=== PATIENT | male | born 1955 | race Caucasian/White ===

== ENCOUNTER 2024-03-12 20:17 | Inpatient (IN) | payer OTHER ==
--- NOTE | 2024-03-12 20:35 | ED ---
Male Urogenital HPI - General Chief complaint: Urogenital Stated complaint: fever, urogenital Time Seen by Provider: 03/12/24 20:35 Source: patient, RN notes reviewed Mode of arrival: ambulatory Limitations: no limitations - History of Present Illness Initial comments: 61-year-old male with history of hypertension presents emergency department company by and friend chief complaint of possible UTI. Patient states for the past 3 days he has been experiencing dysuria, hematuria, increase in urinary frequency and urgency. Additionally has mild suprapubic intermittent tenderness. Additionally, patient has been experiencing fevers and chills and nausea. Patient denies history of UTI, pyelonephritis, nephrolithiasis. Currently, he is denying abdominal pain, flank pain, shortness of breath, difficulty breathing. no changes in bowel movements. No previous surgical abdominal history. - Related Data Allergies Allergy/AdvReac Type Severity Reaction Status Date / Time No Known Allergies Allergy Verified 03/12/24 20:23 Review of Systems ROS Statement: Those systems with pertinent positive or pertinent negative responses have been documented in the HPI. ROS Other: All systems not noted in ROS Statement are negative. Past Medical History Past Medical History: Hypertension History of Any Multi-Drug Resistant Organisms: None Reported Past Surgical History: Joint Replacement, Orthopedic Surgery Past Psychological History: No Psychological Hx Reported Smoking Status: Never smoker Past Alcohol Use History: Occasional Past Drug Use History: None Reported General Exam Limitations: no limitations General appearance: alert, in no apparent distress Head exam: Present: atraumatic, normocephalic, normal inspection Eye exam: Present: normal appearance, PERRL, EOMI. Absent: scleral icterus, conjunctival injection, periorbital swelling Neck exam: Present: normal inspection. Absent: tenderness, meningismus, lymphadenopathy Respiratory exam: Present: normal lung sounds bilaterally. Absent: respiratory distress, wheezes, rales, rhonchi, stridor Cardiovascular Exam: Present: regular rate, normal rhythm, normal heart sounds. Absent: systolic murmur, diastolic murmur, rubs, gallop, clicks GI/Abdominal exam: Present: soft, normal bowel sounds. Absent: distended, tenderness, guarding, rebound, rigid Back exam: Present: normal inspection Neurological exam: Present: alert, oriented X3, CN II-XII intact Skin exam: Present: warm, dry, intact, normal color. Absent: rash Course Vital Signs 03/12/24 03/12/24 20:18 22:55 Temperature 99.0 F 99.8 F H Pulse Rate 98 137 H Respiratory 18 22 Rate Blood Pressure 158/85 199/102 O2 Sat by Pulse 100 100 Oximetry Medical Decision Making - Medical Decision Making Was pt. sent in by a medical professional or institution (, A[facility], FOLLOW UP REP, urgent care, hospital, or prison...) When possible be specific @ -No Did you speak to anyone other than the patient for history (EMS, parent, family, police, friend...)? What history was obtained from this source @ -No Did you review nursing and triage notes (agree or disagree)? Why? @ -I reviewed and agree with nursing and triage notes Were old charts reviewed (outside hosp., previous admission, EMS record, old EKG, old radiological studies, urgent care reports/EKG's, prison records)? Report findings @ -No old charts were reviewed Differential Diagnosis (chest pain, altered mental status, abdominal pain women, abdominal pain men, vaginal bleeding, weakness, fever, dyspnea, syncope, headache, dizziness, GI bleed, back pain, seizure, CVA, palpatations, mental health, musculoskeletal)? @ -Differential Abdominal Pain Men: Appendicitis, cholecystitis, diverticulosis, ischemic bowel, pancreatitis, hepatitis, UTI, gastroenteritis, AAA, incarcerated hernia, bowel obstruction, constipation, inflammatory bowel, hepatitis, peptic ulcer disease, splenic infarction, perforated viscus, testicular torsion, this is not meant to be an all-inclusive list EKG interpreted by me (3pts min.). @ -None X-rays interpreted by me (1pt min.). @ -None done CT interpreted by me (1pt min.). @ -None done U/S interpreted by me (1pt. min.). @ -None done What testing was considered but not performed or refused? (CT, X-rays, U/S, labs)? Why? @ -None What meds were considered but not given or refused? Why? @ -None Did you discuss the management of the patient with other professionals (professionals i.e. AYESHA Woodward, FOLLOW UP REP, lab, RT, psych nurse, social science instructor, belt loop machine operator, teacher, amphibious operations officer, case monitor)? Give summary @ -Spoke with internal medicine physician, Dr. Culver, in regard to the patient's presentation and current febrile temperature, tachycardia, leukocytosis and urinary tract infection. Patient will be admitted for IV antib iotics and fluid resuscitation. Was smoking cessation discussed for >3mins.? @ -No Was critical care preformed (if so, how long)? @ -No Were there social determinants of health that impacted care today? How? (Homelessness, low income, unemployed, alcoholism, drug addiction, transportation, low edu. Level, literacy, decrease access to med. care, custodial, rehab)? @ -No Was there de-escalation of care discussed even if they declined (Discuss DNR or withdrawal of care, Hospice)? DNR status @ -No What co-morbidities impacted this encounter? (DM, HTN, Smoking, COPD, CAD, Cancer, CVA, ARF, Chemo, Hep., AIDS, mental health diagnosis, sleep apnea, morbid obesity)? @ -None Was patient admitted / discharged? Hospital course, mention meds given and route, prescriptions, significant lab abnormalities, going to OR and other pertinent info. @ -69-year-old male with dysuria, fevers and chills. On examination patient is in no signs of acute distress, abdominal exam with no tenderness through all quadrants. Afebrile, nontachycardic. Patient is symptomatically treated with IV fluids pending the results of labs and urinalysis. Patient is in agreement with this plan. Laboratory results reveal leukocytosis of 18.9, neutrophilia 17, CMP mild elevation in bilirubin of 2.1. Urinalysis significant for infection including large leukocyte esterase, white blood cells, white blood cell clumps. Patient's recheck of vitals reveals low-grade temperature of 99.9, tachycardia, patient is also experiencing mild tremors. Patient will be admitted to internal medicine started on IV antibiotics for complicated urinary tract infection. Additionally is provided with Motrin and additional 1 L fluid bolus, urine culture sent. Discussed with Dr. Scott Undiagnosed new problem with uncertain prognosis? @ -No Drug Therapy requiring intensive monitoring for toxicity (Heparin, Nitro, Ins ulin, Cardizem)? @ -No Were any procedures done? @ -No Diagnosis/symptom? @ -urinary tract infection, leukocytosis Acute, or Chronic, or Acute on Chronic? @ -acute Uncomplicated (without systemic symptoms) or Complicated (systemic symptoms)? @ -uncomplicated Side effects of treatment? @ -No Exacerbation, Progression, or Severe Exacerbation? @ -No Poses a threat to life or bodily function? How? (Chest pain, [place], [place], pneumonia, PE, COPD, DKA, ARF, appy, cholecystitis, CVA, Diverticulitis, Homicidal, Suicidal, threat to staff... and all critical care pts) @ -No - Lab Data Result diagrams: 03/12/24 21:02 03/12/24 21: Lab Results 03/12/24 03/12/24 03/12/24 Range/Units 21:02 21: 21: WBC 18.9 H (3.8-10.6) k/uL RBC 4.84 (4.30-5.90) m/uL Hgb 15.1 (13.0-17.5) gm/dL Hct 44.6 (39.0-53.0) % MCV 92.2 (80.0-100.0) fL MCH 31.1 (25.0-35.0) pg MCHC 33.8 (31.0-37.0) g/dL RDW 12.9 (11.5-15.5) % Plt Count 161 (150-450) k/uL MPV 7.6 Neutrophils % 90 % Lymphocytes % 6 % Monocytes % 3 % Eosinophils % 0 % Basophils % 0 % Neutrophils # 17.0 H (1.3-7.7) k/uL Lymphocytes # 1.1 (1.0-4.8) k/uL Monocytes # 0.6 (0-1.0) k/uL Eosinophils # 0.0 (0-0.7) k/uL Basophils # 0.0 (0-0.2) k/uL Sodium 133 L (137-145) mmol/L Potassium 4.1 (3.5-5.1) mmol/L Chloride 99 (98-107) mmol/L Carbon Dioxide 28 (22-30) mmol/L Anion Gap 6 mmol/L BUN 19 (9-20) mg/dL Creatinine 1.14 (0.66-1.25) mg/dL Est GFR (CKD-EPI)AfAm 76 (>60 ml/min/1.73 sqM) Est GFR (CKD-EPI)NonAf 66 (>60 ml/min/1.73 sqM) Glucose 121 H (74-99) mg/dL Plasma Lactic Acid Anurag (0.7-2.0) mmol/L Calcium 9.0 (8.4-10.2) mg/dL Total Bilirubin 2.1 H (0.2-1.3) mg/dL AST 27 (17-59) U/L ALT 19 (4-49) U/L Alkaline Phosphatase 73 (38-126) U/L Total Protein 7.1 (6.3-8.2) g/dL Albumin 4.2 (3.5-5.0) g/dL Lipase 98 (23-300) U/L Urine Color Yellow Urine Appearance Cloudy (Clear) Urine pH 6.0 (5.0-8.0) Ur Specific [place] 1.021 (1.001-1.035) Urine Protein 1+ H (Negative) Urine Glucose (UA) Negative (Negative) Urine Ketones Negative (Negative) Urine Blood Moderate H (Negative) Urine Nitrite Negative (Negative) Urine Bilirubin Negative (Negative) Urine Urobilinogen <2.0 (<2.0) mg/dL Ur Leukocyte Esterase Large H (Negative) Urine RBC 13 H (0-5) /hpf Urine WBC >182 H (0-5) /hpf Urine WBC Clumps Few H (None) /hpf Urine Bacteria Occasional H (None) /hpf Hyaline Casts 2 (0-2) /lpf Urine Mucus Rare H (None) /hpf 03/12/24 Range/Units 21:02 WBC (3.8-10.6) k/uL RBC (4.30-5.90) m/uL Hgb (13.0-17.5) gm/dL Hct (39.0-53.0) % MCV (80.0-100.0) fL MCH (25.0-35.0) pg MCHC (31.0-37.0) g/dL RDW (11.5-15.5) % Plt Count (150-450) k/uL MPV Neutrophils % % Lymphocytes % % Monocytes % % Eosinophils % % Basophils % % Neutrophils # (1.3-7.7) k/uL Lymphocytes # (1.0-4.8) k/uL Monocytes # (0-1.0) k/uL Eosinophils # (0-0.7) k/uL Basophils # (0-0.2) k/uL Sodium (137-145) mmol/L Potassium (3.5-5.1) mmol/L Chloride (98-107) mmol/L Carbon Dioxide (22-30) mmol/L Anion Gap mmol/L BUN (9-20) mg/dL Creatinine (0.66-1.25) mg/dL Est GFR (CKD-EPI)AfAm (>60 ml/min/1.73 sqM) Est GFR (CKD-EPI)NonAf (>60 ml/min/1.73 sqM) Glucose (74-99) mg/dL Plasma Lactic Acid Anurag 1.6 (0.7-2.0) mmol/L Calcium (8.4-10.2) mg/dL Total Bilirubin (0.2-1.3) mg/dL AST (17-59) U/L ALT (4-49) U/L Alkaline Phosphatase (38-126) U/L Total Protein (6.3-8.2) g/dL Albumin (3.5-5.0) g/dL Lipase (23-300) U/L Urine Color Urine Appearance (Clear) Urine pH (5.0-8.0) Ur Specific [place] (1.001-1.035) Urine Protein (Negative) Urine Glucose (UA) (Negative) Urine Ketones (Negative) Urine Blood (Negative) Urine Nitrite (Negative) Urine Bilirubin (Negative) Urine Urobilinogen (<2.0) mg/dL Ur Leukocyte Esterase (Negative) Urine RBC (0-5) /hpf Urine WBC (0-5) /hpf Urine WBC Clumps (None) /hpf Urine Bacteria (None) /hpf Hyaline Casts (0-2) /lpf Urine Mucus (None) /hpf Disposition Clinical Impression: Complicated UTI (urinary tract infection) Disposition: ADMITTED IP TO THIS HOSP Condition: Poor Is patient prescribed a controlled substance at d/c from ED?: No Referrals: Nonstaff,Physician [Primary Care Provider] - 1-2 days Decision to Admit Reason: Admit from EC Decision Date: 03/12/24 Decision Time: 23:13
[2024-03-12] MEDS: SODIUM CHLORIDE 0.9% 1,000 ML IV STA ×2 (21:11→23:16)
[2024-03-12 21:38] LABS: Basophils % (A) 0 %; Eosinophils % (A) 0 %; HCT 44.6 % (39.0-53.0); HGB 15.1 gm/dL (13.0-17.5); Lymphocytes # (A) 1.1 k/uL (1.0-4.8); Lymphocytes % (A) 6 %; MCH 31.1 pg (25.0-35.0); MCHC 33.8 g/dL (31.0-37.0); MCV 92.2 fL (80.0-100.0); Mean Platelet Volume 7.6; Monocytes # (A) 0.6 k/uL (0-1.0); Monocytes % (A) 3 %; Neutrophils % (A) 90 %; Platelet Count 161 k/uL (150-450); RBC 4.84 m/uL (4.30-5.90); RDW 12.9 % (11.5-15.5); WBC 18.9 k/uL (3.8-10.6)
[2024-03-12 21:52] LABS: ALT 19 U/L (4-49); AST 27 U/L (17-59); African American GFR (CKD) 76 (>60 ml/min/1.73 sqM); Albumin 4.2 g/dL (3.5-5.0); Alkaline Phosphatase 73 U/L (38-126); Anion Gap 6 mmol/L; Blood Urea Nitrogen 19 mg/dL (9-20); Carbon Dioxide 28 mmol/L (22-30); Chloride 99 mmol/L (98-107); Glucose 121 mg/dL (74-99); Lipase 98 U/L (23-300); Non-African American GFR(CKD) 66 (>60 ml/min/1.73 sqM); Potassium 4.1 mmol/L (3.5-5.1); Sodium 133 mmol/L (137-145); Total Bilirubin 2.1 mg/dL (0.2-1.3); Total Protein 7.1 g/dL (6.3-8.2)
[2024-03-12] MEDS: IBUPROFEN 800 MG TAB PO STA (22:59)
[2024-03-12 23:00] LABS: Appearance,Urine Cloudy (Clear); Bacteria,Urine Occasional /hpf; Bilirubin,Urine Negative (Negative); Blood,Urine Moderate (Negative); Color,Urine Yellow; Glucose,Urine (UA) Negative (Negative); Hyaline Casts,Urine 2 /lpf (0-2); Ketones,Urine Negative (Negative); Leukocyte Esterase,Urine Large (Negative); Mucus,Urine Rare /hpf; Nitrite,Urine Negative (Negative); Protein,Urine 1+ (Negative); RBC,Urine 13 /hpf (0-5); Specific Gravity,Urine 1.021 (1.001-1.035); Urobilinogen,Urine <2.0 mg/dL (<2.0); WBC,Urine >182 /hpf (0-5)
[2024-03-12] MEDS ORDERED: NALOXONE 0.4 MG/ML 1 ML VIAL IV PRN (23:13)
[2024-03-12] MEDS ORDERED: ONDANSETRON 4 MG/2 ML VIAL IVP PRN (23:13)
[2024-03-12] MEDS ORDERED: IBUPROFEN 400 MG TAB PO PRN (23:13)
[2024-03-13] MEDS: ACETAMINOPHEN TAB 500 MG TAB PO STA (00:14)
[2024-03-13] MEDS: SODIUM CHLORIDE 0.9% 500 ML 500 ML IV STA ×2 (02:47→04:17)
[2024-03-13] MEDS: SODIUM CHLORIDE 0.9% 1,000 ML IV SCH ×2 (02:48→04:19)
[2024-03-13] MEDS ORDERED: VANCOMYCIN IV PER PHARMACY 1 EACH MISC MISCELLANE PRN (05:26)
[2024-03-13] MEDS: NOREPINEPHRINE 4 MG in SODIUM CHLORIDE 0.9% 250 ML IV ONE (05:34)
[2024-03-13] MEDS: VANCOMYCIN 1,500 MG in SODIUM CHLORIDE 0.9% 500 ML 500 ML IVPB STA (06:06)
--- NOTE | 2024-03-13 07:09 | P.CNPUL ---
History of Present Illness Consult date: 03/13/24 Requesting physician: Norm Scott Reason for consult: other (ICU management; urosepsis) Chief complaint: Dysuria, hematuria History of present illness: Patient is a 69-year-old white male with past medical history significant for hypertension. Patient is from [place] on holiday, recently traveled here by plane last week. Comes to the emergency department late last night with uncontrollable fever. Tmax 102.5 F. Patient is endorsing urinary symptoms including burning with urination, 1 episode of gross hematuria, and urinary frequency. states patient was confused last night when spiking fever. Denies CVA tenderness or flank pain. Admits nausea without vomiting. Denies history of kidney stones. Denies previous urinary tract infection. Denies previous BPH or cancer. Urinalysis taken on arrival suspicious for urinary tract infection with large leukocyte Estrace and bacteruria. As well as microscopic hematuria. Urine and blood culture is pending. Patient is covered on broad- spectrum antibiotics in the form of vancomycin and cefepime. Of note, patient also reporting some vague URI like symptoms including nasal congestion/postnasal drip and sore throat with chest congestion. Denies SOB. No significant coughing or sputum production. No chest pain. No hemoptysis. Denies unilateral lower extremity swelling or calf pain. CBC: WBC count 18.9, hemoglobin 15.1, hematocrit 44.6, platelets 161. BMP: Sodium 133, potassium 4.1, chloride 99, serum bicarb 20, BUN 19, creatinine 1.14, glucose 121. Lactic 1.6. LFTs unremarkable. While being evaluated in the emergency department, patient was noted to be hypotensive. Has been adequately fluid resuscitated with a total of 3 L normal saline bolus. Also, receiving normal saline at 130 mL/h. Despite this remains hypotensive, now requiring vasopressor support in the form of norepinephrine, which is currently infusing at 0.03 mcg/kg/min and actively being titrated. Patient is currently resting comfortably in trauma bay 1. He is alert and oriented x 3. His is at bedside. He is on room air. SpO2 99%. Heart rate 92 bpm. Most recent blood pressure 79/61 mmHg. Patient is being admitted to the intensive care unit. Review of Systems Constitutional: Reports chills, Reports fever, Reports poor appetite Ears, nose, mouth and throat: Reports headache, Reports post-nasal drip, Reports sore throat Cardiovascular: Reports leg edema, Denies chest pain, Denies lightheadedness, Denies palpitations, Denies paroxysmal nocturnal dyspnea Respiratory: Reports congestion, Denies cough, Denies cough with sputum, Denies dyspnea, Denies hemoptysis, Denies pain on inspiration Gastrointestinal: Reports loss of appetite, Reports nausea, Denies diarrhea, Denies vomiting Genitourinary: Reports dysuria, Reports hematuria, Reports urinary frequency Musculoskeletal: Reports muscle cramps Integumentary: Denies rash Neurological: Denies confusion, Denies loss of vision, Denies memory loss, Denies seizures Psychiatric: Denies anxiety, Denies depression Past Medical History Past Medical History: Hypertension History of Any Multi-Drug Resistant Organisms: None Reported Past Surgical History: Joint Replacement, Orthopedic Surgery Past Psychological History: No Psychological Hx Reported Smoking Status: Never smoker Past Alcohol Use History: Occasional Past Drug Use History: None Reported Medications and Allergies Allergies Allergy/AdvReac Type Severity Reaction Status Date / Time No Known Allergies Allergy Verified 03/13/24 08:38 Physical Exam Vitals: Vital Signs Temp Pulse Resp BP Pulse Ox 03/13/24 05:31 89 18 79/61 97 03/13/24 05:08 89 18 89/61 96 03/13/24 04:30 92 18 83/57 96 03/13/24 04:08 97.5 F L 87 18 88/60 96 03/13/24 03:35 91 18 93/64 96 03/13/24 03:08 97.6 F 89 18 94/62 96 03/13/24 02:41 98.2 F 97 18 94/58 96 03/13/24 01:33 103 H 102/66 03/13/24 01:08 99.2 F 100 20 103/66 96 03/13/24 00:55 96 03/13/24 00:02 102.5 F H 115 H 22 145/82 93 L 03/12/24 22:55 99.8 F H 137 H 22 199/102 100 03/12/24 20:18 99.0 F 98 18 158/85 100 Intake and Output 03/12/24 03/12/24 03/13/24 14:59 22:59 06:59 Other: Voiding Method Toilet Weight 86.183 kg GENERAL EXAM: Alert, 69-year-old male appearing stated age, comfortable in no apparent distress. HEAD: Normocephalic and atraumatic EYES: Normal reaction of pupils, equal size. NOSE: Clear with pink turbinates. THROAT: No erythema or exudates. NECK: No masses, no JVD. CHEST: No chest wall deformity. LUNGS: Equal air entry with no crackles, wheeze, rhonchi or dullness. On room air. No conversational dyspnea or accessory muscle use.. CVS: S1 and S2 normal with no audible murmur, regular rhythm. No extra heart sounds ABDOMEN: No hepatosplenomegaly, active bowel sounds, no guarding or rigidity. No suprapubic tenderness. SPINE: No scoliosis or deformity. No CVA tenderness. SKIN: No rashes CENTRAL NERVOUS SYSTEM: No focal deficits, tone is normal in all 4 extremities. EXTREMITIES: There is no peripheral edema, clubbing, or cyanosis. Peripheral pulses are intact. Results - Laboratory Findings CBC and BMP: 03/13/24 06:26 03/13/24 06:26 Abnormal lab findings: Abnormal Labs 03/12/24 03/12/24 03/12/24 21:02 21:02 21:02 WBC 18.9 H Neutrophils # 17.0 H Sodium 133 L Glucose 121 H Total Bilirubin 2.1 H Urine Protein 1+ H Urine Blood Moderate H Ur Leukocyte Esterase Large H Urine RBC 13 H Urine WBC >182 H Urine WBC Clumps Few H Urine Bacteria Occasional H Urine Mucus Rare H Assessment and Plan Assessment: Hypotension, refractory to fluid resuscitation, requiring vasopressor support in the form of norepinephrine Suspected complicated UTI with urosepsis Sepsis/septic shock Acute leukocytosis Gross hematuria URI like symptoms History of hypertension Plan: Medications and labs reviewed Hypotension is refractory to fluid resuscitation, norepinephrine is actively being titrated. Covered on broad-spectrum antibiotics in the form of cefepime and vancomycin, which were started in the emergency department. Urine and blood cultures are pending. Patient also reporting some vague URI-like symptoms. Check Cepheid 4 Plex. Obtain CXR. As needed Tylenol ordered as antipyretic Pepcid for GI prophylaxis We will continue to follow the patient while in the intensive care unit I have personally seen and examined the patient, performed the documentation and the assessment and plan as written. Number of minutes spent on the visit:20 On today's evaluation of 03/13/2024, the patient is seen in conjunction with the nurse practitioner. This is a joint evaluation and the patient was seen in the morning and the patient got transferred to the intensive. Because of hypotension related to a urine tract infection and sepsis. After arrival to the ICU, pressors have been discontinued. The patient already received a total of 3 L of IV fluids and the patient is currently on a maintenance of 130 cc an hour. He is currently normotensive. Nephrology's been consulted the patient sustained an acute kidney injury and the creatinine is up to 1.5. Urine culture still pending. The patient remains on IV cefepime and vancomycin. No history of any kidney stones. No history of any enlarged prostate. This is the patient's first urine tract infection. Ultrasound the kidney was done and it showed no evidence of any hydronephrosis. Awake and alert and communicating. No issues with pain. No flank pain. No tenderness. Currently on IV fluids. Urinating. No Singer catheter has been inserted at this point. The patient will be monitored in the intensive care unit. The patient is clinically stable. Time with Patient: Greater than 30
[2024-03-13 07:37] LABS: ALT 20 U/L (4-49); AST 29 U/L (17-59); African American GFR (CKD) 53 (>60 ml/min/1.73 sqM); Albumin 3.2 g/dL (3.5-5.0); Alkaline Phosphatase 86 U/L (38-126); Anion Gap 8 mmol/L; Blood Urea Nitrogen 21 mg/dL (9-20); Calcium 8.3 mg/dL (8.4-10.2); Carbon Dioxide 19 mmol/L (22-30); Chloride 107 mmol/L (98-107); Glucose 115 mg/dL (74-99); Non-African American GFR(CKD) 46 (>60 ml/min/1.73 sqM); Potassium 3.5 mmol/L (3.5-5.1); Sodium 134 mmol/L (137-145); Total Bilirubin 2.3 mg/dL (0.2-1.3); Total Protein 5.7 g/dL (6.3-8.2)
[2024-03-13 07:41] LABS: HGB 13.4 gm/dL (13.0-17.5); MCH 31.4 pg (25.0-35.0); MCHC 33.5 g/dL (31.0-37.0); MCV 93.6 fL (80.0-100.0); Mean Platelet Volume 8.2; Platelet Count 139 k/uL (150-450); RBC 4.27 m/uL (4.30-5.90); RDW 13.2 % (11.5-15.5); WBC 18.2 k/uL (3.8-10.6)
--- NOTE | 2024-03-13 08:03 | P.HPIM ---
History of Present Illness This is a pleasant 69 years old maleWith no significant past medical history other than hypertension. Presents because of fever of 2 days duration associated with sweating. Feeling tired and low appetite Also patient was complaining from dysuria and passing blood in his urine Other than that he denies chest pain or dyspnea. No change in bowel habits. No headache dizziness weakness or numbness He denies smoking alcohol or illicit drugs On admission he has a fever 102, blood pressure dropped to 79/61 and placed on small dose of Levophed. He has leukocytosis 18.9 and creatinine went up 1.1 up to 1.5 Urinalysis suspicious for infection Patient was started on ceftriaxone and IV vancomycin and normal saline 130 mL/h after several boluses and also he required pressors with Levophed. Review of Systems Review of systems CONSTITUTIONAL: No fever, no malaise, no fatigue. HEENT: No recent visual problems or hearing problems. Denied any sore throat. CARDIOVASCULAR: No orthopnea, PND, no palpitations, no syncope. PULMONARY: No shortness of breath, no cough, no hemoptysis. GASTROINTESTINAL: No diarrhea, no nausea, no vomiting, no abdominal pain. Normoactive bowel sounds. NEUROLOGICAL: No headaches, no weakness, no numbness. HEMATOLOGICAL: Denies any bleeding or petechiae. GENITOURINARY: Denies any burning micturition, frequency, or urgency. MUSCULOSKELETAL/RHEUMATOLOGICAL: Denies any joint pain, swelling, or any muscle pain. ENDOCRINE: Denies any polyuria or polydipsia. Past Medical History Past Medical History: Hypertension History of Any Multi-Drug Resistant Organisms: None Reported Past Surgical History: Joint Replacement, Orthopedic Surgery Past Psychological History: No Psychological Hx Reported Smoking Status: Never smoker Past Alcohol Use History: Occasional Past Drug Use History: None Reported Medications and Allergies Allergies Allergy/AdvReac Type Severity Reaction Status Date / Time No Known Allergies Allergy Verified 03/12/24 20:23 Physical Exam Vitals: Vital Signs Temp Pulse Resp BP Pulse Ox 03/13/24 07:18 84 20 91/60 97 03/13/24 05:31 89 18 79/61 97 03/13/24 05:08 89 18 89/61 96 03/13/24 04:30 92 18 83/57 96 03/13/24 04:08 97.5 F L 87 18 88/60 96 03/13/24 03:35 91 18 93/64 96 03/13/24 03:08 97.6 F 89 18 94/62 96 03/13/24 02:41 98.2 F 97 18 94/58 96 03/13/24 01:33 103 H 102/66 03/13/24 01:08 99.2 F 100 20 103/66 96 03/13/24 00:55 96 03/13/24 00:02 102.5 F H 115 H 22 145/82 93 L 03/12/24 22:55 99.8 F H 137 H 22 199/102 100 03/12/24 20:18 99.0 F 98 18 158/85 100 Intake and Output 03/12/24 03/13/24 03/13/24 22:59 06:59 14:59 Intake Total 9.523 Balance 9.523 Intake: Intake, IV Titration 9.523 Amount Norepinephrine 4 mg In 9.523 Sodium Chloride 0.9% 250 ml @ 0.03 MCG/KG/MIN 9. 851 mls/hr IV .Q24H ONE Rx#:[id number] Other: Voiding Method Toilet Weight 86.183 kg GENERAL: The patient is alert and oriented x3, not in any acute distress. Well developed, well nourished. HEENT: Pupils are round and equally reacting to light. EOMI. No scleral icterus. No conjunctival pallor. Normocephalic, atraumatic. No pharyngeal erythema. No thyromegaly. CARDIOVASCULAR: S1 and S2 present. No murmurs, rubs, or gallops. PULMONARY: Chest is clear to auscultation, no wheezing , no crackles. ABDOMEN: Soft, nontender, nondistended, normoactive bowel sounds. No palpable organomegaly. MUSCULOSKELETAL: No joint swelling or deformity. EXTREMITIES: No cyanosis, clubbing, or pedal edema. NEUROLOGICAL: Gross neurological examination did not reveal any focal deficits. SKIN: No rashes. no petechiae. Results CBC & Chem 7: 03/13/24 06:26 03/13/24 06:26 Labs: Abnormal Lab Results - Last 24 Hours (Table) 03/12/24 03/12/24 03/12/24 Range/Units 21:02 21:02 21:02 WBC 18.9 H (3.8-10.6) k/uL RBC (4.30-5.90) m/uL Plt Count (150-450) k/uL Neutrophils # 17.0 H (1.3-7.7) k/uL Sodium 133 L (137-145) mmol/L Carbon Dioxide (22-30) mmol/L BUN (9-20) mg/dL Creatinine (0.66-1.25) mg/dL Glucose 121 H (74-99) mg/dL Calcium (8.4-10.2) mg/dL Total Bilirubin 2.1 H (0.2-1.3) mg/dL Total Protein (6.3-8.2) g/dL Albumin (3.5-5.0) g/dL Urine Protein 1+ H (Negative) Urine Blood Moderate H (Negative) Ur Leukocyte Esterase Large H (Negative) Urine RBC 13 H (0-5) /hpf Urine WBC >182 H (0-5) /hpf Urine WBC Clumps Few H (None) /hpf Urine Bacteria Occasional H (None) /hpf Urine Mucus Rare H (None) /hpf 03/13/24 03/13/24 Range/Units 06:26 06:26 WBC 18.2 H (3.8-10.6) k/uL RBC 4.27 L (4.30-5.90) m/uL Plt Count 139 L (150-450) k/uL Neutrophils # (1.3-7.7) k/uL Sodium 134 L (137-145) mmol/L Carbon Dioxide 19 L (22-30) mmol/L BUN 21 H (9-20) mg/dL Creatinine 1.53 H (0.66-1.25) mg/dL Glucose 115 H (74-99) mg/dL Calcium 8.3 L (8.4-10.2) mg/dL Total Bilirubin 2.3 H (0.2-1.3) mg/dL Total Protein 5.7 L (6.3-8.2) g/dL Albumin 3.2 L (3.5-5.0) g/dL Urine Protein (Negative) Urine Blood (Negative) Ur Leukocyte Esterase (Negative) Urine RBC (0-5) /hpf Urine WBC (0-5) /hpf Urine WBC Clumps (None) /hpf Urine Bacteria (None) /hpf Urine Mucus (None) /hpf Assessment and Plan Assessment: Septic shock secondary to UTI Acute urinary tract infection Acute kidney injury Hypertension, currently blood pressure on the low side requiring pressors Plan: Continue with antibiotic currently on ceftriaxone Follow-up urine culture Check renal ultrasound Consult infectious disease and geriatric case manager Patient is going to the ICU because of requiring 4 pressors with pulmonary/critical care team on the case GI and DVT prophylaxis with Pepcid and subcu heparin Prognosis guarded
[2024-03-13] MEDS: FAMOTIDINE 20 MG/2 ML VIAL IV SCH (08:27)
[2024-03-13] MEDS: HEPARIN SODIUM,PORCINE 5,000 UNIT/ML 1 ML VIAL SQ SCH (08:28)
[2024-03-13] MEDS ORDERED: NALOXONE 0.4 MG/ML 1 ML VIAL IV PRN (09:09)
[2024-03-13] MEDS: CEFEPIME 2 GM in SODIUM CHLORIDE 0.9% 100 ML IVPB SCH ×2 (09:42→20:19)
[2024-03-13 10:32] LABS: Band Neutrophils % 13 %; Lymphocytes # (M) 0.73 k/uL (1.0-4.8); Metamyelocytes # (M) 0.36 k/uL (0); Metamyelocytes % 2 %; Monocytes # (M) 0.91 k/uL (0-1.0); Neutrophils % (M) 78 %; Nucleated Red Blood Cells 0 /100 WBC (0-0); Total Cells Counted 200
[2024-03-13 10:33] LABS: RBC Morphology Normal; Toxic Vacuolation Present
--- NOTE | 2024-03-13 11:10 | P.NPCON ---
History of Present Illness - Reason for Consult acute renal failure - History of Present Illness patient is a 69-year-old male who is visiting from [place]. Patient is admitted to the hospital with complaints of increased weakness, pain while passing urine and fever for about 2-3 days. On admission blood pressure was 79/61 and temp of 102. Patient has received 3 L of fluid boluses and was also maintained on levo fed which is now discontinued. No previous history of kidney diseases. No history of repeated urinary tract infections. Serum creatinine was 1.1 on initial admission and increased to 1.5 today. Urine output not charted. Patient has about 200 mL noted on bladder scan, waiting to avoid. patient admits to taking 3-4 doses of Motrin for fever prior to admission. Review of Systems as per HPI Past Medical History Past Medical History: Hypertension History of Any Multi-Drug Resistant Organisms: None Reported Past Surgical History: Joint Replacement, Orthopedic Surgery Past Anesthesia/Blood Transfusion Reactions: No Reported Reaction Past Psychological History: No Psychological Hx Reported Smoking Status: Never smoker Past Alcohol Use History: Occasional Past Drug Use History: None Reported Medications and Allergies Home Medications Medication Instructions Recorded Confirmed Type Zanidip 20 mg PO DAILY 03/13/24 03/13/24 History Allergies Allergy/AdvReac Type Severity Reaction Status Date / Time No Known Allergies Allergy Verified 03/13/24 08:38 Physical Exam Vitals: Vital Signs Temp Pulse Pulse Resp BP BP Pulse Ox 03/13/24 09:15 97.8 F 77 18 104/80 97 03/13/24 08:36 98.5 F 75 16 96/70 98 03/13/24 08:30 82 20 96/70 96 03/13/24 07:18 84 20 91/60 97 03/13/24 05:31 89 18 79/61 97 03/13/24 05:08 89 18 89/61 96 03/13/24 04:30 92 18 83/57 96 03/13/24 04:08 97.5 F L 87 18 88/60 96 03/13/24 03:35 91 18 93/64 96 03/13/24 03:08 97.6 F 89 18 94/62 96 03/13/24 02:41 98.2 F 97 18 94/58 96 03/13/24 01:33 103 H 102/66 03/13/24 01:08 99.2 F 100 20 103/66 96 03/13/24 00:55 96 03/13/24 00:02 102.5 F H 115 H 22 145/82 93 L 03/12/24 22:55 99.8 F H 137 H 22 199/102 100 03/12/24 20:18 99.0 F 98 18 158/85 100 Intake and Output 03/12/24 03/13/24 03/13/24 22:59 06:59 14:59 Intake Total 9.523 Balance 9.523 Intake: Intake, IV Titration 9.523 Amount Norepinephrine 4 mg In 9.523 Sodium Chloride 0.9% 250 ml @ 0.03 MCG/KG/MIN 9. 851 mls/hr IV .Q24H [facility] Rx#:[id number] Other: Voiding Method Toilet Weight 86.183 kg 86.183 kg patient is awake, comfortable, no acute distress. Alert oriented 3. Examination of the heart S1 and S2 Examination the lungs bilateral breath sounds are heard Abdomen is soft nontender Examination of lower extremities shows no evidence of edema. [employer] exam grossly intact Results - Lab Results Most recent lab results Calcium 8.3 mg/dL (8.4-10.2) L 03/13/24 06:26 03/13/24 06:26 03/13/24 06:26 Assessment and Plan Assessment: 1. Acute kidney injury, ATN secondary to hypotension and underlying infection. Nonoliguric. Maintained on IV fluids. 2. UTI, urine culture is pending. 3. Hypertension entertained on calcium channel blockers 4. Septic shock from urinary tract infection Plan: continue with IV fluids. Continue IV antibiotics Repeat labs in a.m. Avoid any nephrotoxic agents including NSAIDs which patient was taking at home. Next Thank you for the consultation. We will continue to follow the patient with you during his hospitalization.
--- NOTE | 2024-03-13 11:11 | US ---
EXAMINATION TYPE: US renals and bladder DATE OF EXAM: 03/13/2024 Exam done portable in ICU COMPARISON: NONE CLINICAL INDICATION: Male, 69 years old with history of lauryn , uti , septic shock; EXAM MEASUREMENTS: Right Kidney: 11.1 x 4.2 x 4.8 cm Left Kidney: 10.3 x 4.9 x 5.9 cm Right Kidney: No hydronephrosis or masses seen Left Kidney: No hydronephrosis or masses seen Bladder: wnl Bilateral Jets seen: no There is no evidence for hydronephrosis at this point in time. No nephrolithiasis is seen. Corticome dullary differentiation is maintained bilaterally. No masses are identified. No perinephric fluid col lections identified. The urinary bladder is anechoic. No definitive filling defects identified. Juan ateral ureteral jets are not seen. IMPRESSION: No hydronephrosis.
[2024-03-13] MEDS: VANCOMYCIN 1,500 MG in SODIUM CHLORIDE 0.9% 500 ML 500 ML IVPB SCH (21:22)
[2024-03-14 05:54] LABS: Basophils % (A) 0 %; Eosinophils # (A) 0.1 k/uL (0-0.7); Eosinophils % (A) 0 %; HCT 39.9 % (39.0-53.0); HGB 12.9 gm/dL (13.0-17.5); Lymphocytes # (A) 0.7 k/uL (1.0-4.8); Lymphocytes % (A) 5 %; MCH 30.3 pg (25.0-35.0); MCHC 32.3 g/dL (31.0-37.0); MCV 93.6 fL (80.0-100.0); Mean Platelet Volume 7.5; Monocytes # (A) 0.5 k/uL (0-1.0); Monocytes % (A) 4 %; Neutrophils # (A) 12.5 k/uL (1.3-7.7); Neutrophils % (A) 89 %; Platelet Count 133 k/uL (150-450); RBC 4.26 m/uL (4.30-5.90); RDW 13.2 % (11.5-15.5); WBC 13.9 k/uL (3.8-10.6)
[2024-03-14 06:10] LABS: African American GFR (CKD) 81 (>60 ml/min/1.73 sqM); Anion Gap 8 mmol/L; Blood Urea Nitrogen 19 mg/dL (9-20); Carbon Dioxide 20 mmol/L (22-30); Chloride 106 mmol/L (98-107); Glucose 98 mg/dL (74-99); Non-African American GFR(CKD) 70 (>60 ml/min/1.73 sqM); Potassium 3.6 mmol/L (3.5-5.1); Sodium 134 mmol/L (137-145)
--- NOTE | 2024-03-14 07:24 | P.CONS ---
History of Present Illness - Reason for Consult Consult date: 03/13/24 urinary tract infection Requesting physician: Victor Manuel E Sheet - Chief Complaint Dysuria and hematuria x 3 days - History of Present Illness Patient is a 69-year-old male with a past medical history significant for hypertension, patient presenting to the ER for evaluation of dysuria hematuria urgency with a symptom has been getting worse for the last 3 days trevin ent also complaining of suprapubic pain and did have fever and chills and nausea suprapubic pain is mostly dull aching mild to moderate intensity without any radiation did have nausea but no vomiting denies having any diarrhea or constipation patient denies having any headache or URI symptoms no chest pain shortness of breath or cough with the same with the patient has been evaluated on presentation to the hospital he did have a low-grade fever of 99 F admitted that he did spike a fever of 102.5 F patient was tachycardic as well as hypotensive requiring pressor support and admission to the ICU he was not hypoxic no need for supplemental oxygen patient did have a white count of 18.9 her repeat is 18.2 BUN/creatinine was mildly elevated she has been positive influenza RSV COVID testing has been negative patient did have a renal ultrasound no hydronephrosis he was started on vancomycin and cefepime infectious disease was consulted for further management of antibiotic therapy Review of Systems Positive point and negatives has been mentioned in the HPI, complete review of systems was performed and all other systems are negative Past Medical History Past Medical History: Hypertension History of Any Multi-Drug Resistant Organisms: None Reported Past Surgical History: Joint Replacement, Orthopedic Surgery Past Anesthesia/Blood Transfusion Reactions: No Reported Reaction Past Psychological History: No Psychological Hx Reported Smoking Status: Never smoker Past Alcohol Use History: Occasional Past Drug Use History: None Reported Medications and Allergies Home Medications Medication Instructions Recorded Confirmed Type Zanidip 20 mg PO DAILY 03/13/24 03/13/24 History Allergies Allergy/AdvReac Type Severity Reaction Status Date / Time No Known Allergies Allergy Verified 03/13/24 08:38 Physical Exam Vitals: Vital Signs Temp Pulse Pulse Resp BP BP Pulse Ox 03/13/24 12:07 96 03/13/24 12:00 77 18 96/69 97 03/13/24 11:45 71 21 98/72 96 03/13/24 11:30 74 26 H 98/69 95 03/13/24 11:15 75 26 H 99/66 95 03/13/24 11:00 76 13 99/66 97 03/13/24 10:45 16 95/67 97 03/13/24 10:30 16 93/65 97 03/13/24 10:15 84 19 90/56 97 03/13/24 10:00 18 90/77 98 03/13/24 09:45 16 91/67 96 03/13/24 09:30 17 91/67 98 03/13/24 09:15 97.8 F 77 18 87/60 104/80 97 03/13/24 09:00 18 104/80 96 03/13/24 08:45 98.4 F 16 102/62 97 03/13/24 08:36 98.5 F 75 16 96/70 98 03/13/24 08:30 82 20 96/70 96 03/13/24 07:18 84 20 91/60 97 03/13/24 05:31 89 18 79/61 97 03/13/24 05:08 89 18 89/61 96 03/13/24 04:30 92 18 83/57 96 03/13/24 04:08 97.5 F L 87 18 88/60 96 03/13/24 03:35 91 18 93/64 96 03/13/24 03:08 97.6 F 89 18 94/62 96 03/13/24 02:41 98.2 F 97 18 94/58 96 03/13/24 01:33 103 H 102/66 03/13/24 01:08 99.2 F 100 20 103/66 96 03/13/24 00:55 96 03/13/24 00:02 102.5 F H 115 H 22 145/82 93 L 03/12/24 22:55 99.8 F H 137 H 22 199/102 100 03/12/24 20:18 99.0 F 98 18 158/85 100 Intake and Output 03/12/24 03/13/24 03/13/24 22:59 06:59 14:59 Intake Total 9.523 990 Output Total 0 Balance 9.523 990 Intake: IV 990 Cefepime 2 gm In Sodium 100 Chloride 0.9% 100 ml @ 25 mls/hr IVPB Q8HR [facility] Rx# :[id number] Sodium Chloride 0.9% 1, 390 000 ml @ 130 mls/hr IV . Q7H42M [facility] Rx#:[id number] Vancomycin 1,500 mg In 500 Sodium Chloride 0.9% 500 ml 500 ml @ 167 mls/hr IVPB ONCE [facility] Rx#: [id number] Intake, IV Titration 9.523 Amount Norepinephrine 4 mg In 9.523 Sodium Chloride 0.9% 250 ml @ 0.03 MCG/KG/MIN 9. 851 mls/hr IV .Q24H ONE Rx#:[id number] Output: Urine 0 Other: Voiding Method Toilet Urinal Weight 86.183 kg 86.183 kg GENERAL DESCRIPTION: Elderly male lying in bed, no distress. No tachypnea or accessory muscle of respiration use. HEENT: Shows Pallor , no scleral icterus. Oral mucous membrane is dry. No pharyngeal erythema or thrush NECK: Trachea central, no thyromegaly. LUNGS: Unlabored breathing. Clear to auscultation anteriorly. No wheeze or crackle. HEART: S1, S2, regular rate and rhythm. No loud murmur ABDOMEN: Soft, no tenderness , guarding or rigidity, no organomegaly EXTREMITIES: No edema of feet. SKIN: No rash, no masses palpable. NEUROLOGICAL: The patient is awake, alert, oriented x3, mood and affect normal. Results CBC & Chem 7: 03/14/24 05:26 03/14/24 05:26 Labs: Abnormal Lab Results - Last 24 Hours (Table) 03/12/24 03/12/24 03/12/24 Range/Units 21:02 21:02 21:02 WBC 18.9 H (3.8-10.6) k/uL RBC (4.30-5.90) m/uL Plt Count (150-450) k/uL Neutrophils # 17.0 H (1.3-7.7) k/uL Neutrophils # (Manual) (1.3-7.7) k/uL Lymphocytes # (Manual) (1.0-4.8) k/uL Metamyelocytes # (Man) (0) k/uL Sodium 133 L (137-145) mmol/L Carbon Dioxide (22-30) mmol/L BUN (9-20) mg/dL Creatinine (0.66-1.25) mg/dL Glucose 121 H (74-99) mg/dL Calcium (8.4-10.2) mg/dL Total Bilirubin 2.1 H (0.2-1.3) mg/dL Total Protein (6.3-8.2) g/dL Albumin (3.5-5.0) g/dL Urine Protein 1+ H (Negative) Urine Blood Moderate H (Negative) Ur Leukocyte Esterase Large H (Negative) Urine RBC 13 H (0-5) /hpf Urine WBC >182 H (0-5) /hpf Urine WBC Clumps Few H (None) /hpf Urine Bacteria Occasional H (None) /hpf Urine Mucus Rare H (None) /hpf 03/13/24 03/13/24 Range/Units 06:26 06:26 WBC 18.2 H (3.8-10.6) k/uL RBC 4.27 L (4.30-5.90) m/uL Plt Count 139 L (150-450) k/uL Neutrophils # (1.3-7.7) k/uL Neutrophils # (Manual) 16.50 H (1.3-7.7) k/uL Lymphocytes # (Manual) 0.73 L (1.0-4.8) k/uL Metamyelocytes # (Man) 0.36 H (0) k/uL Sodium 134 L (137-145) mmol/L Carbon Dioxide 19 L (22-30) mmol/L BUN 21 H (9-20) mg/dL Creatinine 1.53 H (0.66-1.25) mg/dL Glucose 115 H (74-99) mg/dL Calcium 8.3 L (8.4-10.2) mg/dL Total Bilirubin 2.3 H (0.2-1.3) mg/dL Total Protein 5.7 L (6.3-8.2) g/dL Albumin 3.2 L (3.5-5.0) g/dL Urine Protein (Negative) Urine Blood (Negative) Ur Leukocyte Esterase (Negative) Urine RBC (0-5) /hpf Urine WBC (0-5) /hpf Urine WBC Clumps (None) /hpf Urine Bacteria (None) /hpf Urine Mucus (None) /hpf Assessment and Plan (1) Sepsis Current Visit: Yes Status: Acute Code(s): A41.9 - SEPSIS, UNSPECIFIED ORGANISM SNOMED Code(s): 78767858 (2) Complicated UTI (urinary tract infection) Current Visit: Yes Status: Acute Code(s): N39.0 - URINARY TRACT INFECTION, SITE NOT SPECIFIED SNOMED Code(s): 48064787 Plan: 1patient presented hospital with sepsis in this patient who did have a fever tachycardia hypotension requiring pressor support admitted to ICU with significant urine syndrome positive UA likely related to urinary tract infection likely from enteric gram-negative pathogen gram-positive such as Enterococcus not entirely excluded 2-patient did have mild insufficiency high risk for nephrotoxicity vancomycin trough need to monitor closely 3-vancomycin pharmacy to dose target trough of 15 while watching kidney function and Vanco trough closely and cefepime should provide adequate empiric antibiotic coverage We will follow on clinical condition and cultures to further adjust medication i f needed Thank you for this consultation we will follow the patient along with you Dictation was produced using [employer] dictation software. please excuse any grammatical, word or spelling errors. Family the bedside questions were answered Time with Patient: Greater than 30
[2024-03-14] MEDS: FAMOTIDINE 20 MG/2 ML VIAL IV SCH (09:22)
[2024-03-14] MEDS: CEFEPIME 2 GM in SODIUM CHLORIDE 0.9% 100 ML IVPB SCH (16:42)
[2024-03-14] MEDS: ACETAMINOPHEN TAB 325 MG TAB PO PRN (18:20)
--- NOTE | 2024-03-14 22:26 | P.PN ---
Subjective Progress Note Date: 03/14/24 Patient is a 69-year-old white male with past medical history significant for hypertension. Patient is from [place] on holiday, recently traveled here by plane last week. Comes to the emergency department late last night with uncontrollable fever. Tmax 102.5 F. Patient is endorsing urinary symptoms including burning with urination, 1 episode of gross hematuria, and urinary frequency. states patient was confused last night when spiking fever. Denies CVA tenderness or flank pain. Admits nausea without vomiting. Denies history of kidney stones. Denies previous urinary tract infection. Denies previous BPH or cancer. Urinalysis taken on arrival suspicious for urinary tract infection with large leukocyte Estrace and bacteruria. As well as microscopic hematuria. Urine and blood culture is pending. Patient is covered on broad- spectrum antibiotics in the form of vancomycin and cefepime. Of note, patient also reporting some vague URI like symptoms including nasal congestion/postnasal drip and sore throat with chest congestion. Denies SOB. No significant coughing or sputum production. No chest pain. No hemoptysis. Denies unilateral lower extremity swelling or calf pain. CBC: WBC count 18.9, hemoglobin 15.1, hematocrit 44.6, platelets 161. BMP: Sodium 133, potassium 4.1, chloride 99, serum bicarb 20, BUN 19, creatinine 1.14, glucose 121. Lactic 1.6. LFTs unremarkable. While being evaluated in the emergency department, patient was noted to be hypotensive. Has been adequately fluid resuscitated with a total of 3 L normal saline bolus. Also, receiving normal saline at 130 mL/h. Despite this remains hypotensive, now requiring vasopressor support in the form of norepinephrine, which is currently infusing at 0.03 mcg/kg/min and actively being titrated. Patient is currently resting comfortably in trauma bay 1. He is alert and oriented x 3. His is at bedside. He is on room air. SpO2 99%. Heart rate 92 bpm. Most recent blood pressure 79/61 mmHg. Patient is being admitted to the intensive care unit. On 03/14/2024, the patient is being seen for a follow-up in the intensive care unit. The patient was septic related to urine tract infection and the urine culture is positive for gram-negative bacillus in the blood culture is showing no growth. Patient is doing much better. White cell count is down to 13.9 and the patient is currently on no pressors. The patient also showing improvement acute kidney injury the creatinine is down to 1.08 and his sodium is at 134. No altered mentation. No flank pain. No dysuria frequency urgency. The patient remains on IV cefepime. Awaiting final cultures and sensitivities. IV fluids a re currently at KVO and the patient is tolerating diet. No nausea or emesis or chest pain. Objective - Vital Signs Vital signs: Vital Signs Temp 98.0 F 03/14/24 20:00 Pulse 96 03/14/24 20:00 Resp 16 03/14/24 20:00 BP 146/82 03/14/24 20:00 Pulse Ox 93 L 03/14/24 20:00 FiO2 Intake & Output 03/14/24 03/14/24 03/15/24 06:59 18:59 06:59 Intake Total 2440 100 Output Total 1200 Balance 1240 100 Intake: IV 1900 Cefepime 2 gm In Sodium 100 Chloride 0.9% 100 ml @ 25 mls/hr IVPB Q8HR [facility] Rx# :[id number] Sodium Chloride 0.9% 1, 1300 000 ml @ 130 mls/hr IV . Q7H42M [facility] Rx#:[id number] Vancomycin 1,500 mg In 500 Sodium Chloride 0.9% 500 ml 500 ml @ 167 mls/hr IVPB ONCE [facility] Rx#: [id number] Intake, IV Titration 100 Amount Cefepime 2 gm In Sodium 100 Chloride 0.9% 100 ml @ 25 mls/hr IVPB Q8HR [facility] Rx# :[id number] Oral 540 Output: Urine 1200 Other: Voiding Method Toilet Toilet Urinal Urinal # Voids 1 - Exam GENERAL EXAM: Alert, 69-year-old male appearing stated age, comfortable in no apparent distress. HEAD: Normocephalic and atraumatic EYES: Normal reaction of pupils, equal size. NOSE: Clear with pink turbinates. THROAT: No erythema or exudates. NECK: No masses, no JVD. CHEST: No chest wall deformity. LUNGS: Equal air entry with no crackles, wheeze, rhonchi or dullness. On room air. No conversational dyspnea or accessory muscle use.. CVS: S1 and S2 normal with no audible murmur, regular rhythm. No extra heart sounds ABDOMEN: No hepatosplenomegaly, active bowel sounds, no guarding or rigidity. No suprapubic tenderness. SPINE: No scoliosis or deformity. No CVA tenderness. SKIN: No rashes CENTRAL NERVOUS SYSTEM: No focal deficits, tone is normal in all 4 extremities. EXTREMITIES: There is no peripheral edema, clubbing, or cyanosis. Peripheral pulses are intact. - Labs CBC & Chem 7: 03/14/24 05:26 03/14/24 05:26 Labs: Abnormal Lab Results - Last 24 Hours (Table) 03/14/24 03/14/24 Range/Units 05:26 05:26 WBC 13.9 H (3.8-10.6) k/uL RBC 4.26 L (4.30-5.90) m/uL Hgb 12.9 L (13.0-17.5) gm/dL Plt Count 133 L (150-450) k/uL Neutrophils # 12.5 H (1.3-7.7) k/uL Lymphocytes # 0.7 L (1.0-4.8) k/uL Sodium 134 L (137-145) mmol/L Carbon Dioxide 20 L (22-30) mmol/L Calcium 8.0 L (8.4-10.2) mg/dL Microbiology - Last 24 Hours (Table) 03/13/24 06:01 Blood Culture - Preliminary Blood 03/12/24 21:02 Urine Culture - Preliminary Urine,Clean Catch Gram Neg Bacilli Assessment and Plan Assessment: UTI and secondary sepsis and urine cultures showing gram-negative bacillus. Blood cultures negative thus far. Patient is currently on IV cefepime. Hypotension, refractory to fluid resuscitation, requiring vasopressor support in the form of norepinephrine, recovered and the patient is currently off pressors Sepsis/septic shock, improved Acute leukocytosis, improving Acute kidney injury, improving Gross hematuria URI like symptoms History of hypertension Plan: Change IV fluids to KVO Currently off pressors Continue IV cefepime and the patient will be transition to oral antibiotics in the next 24 hours Blood culture is negative Urine culture is positive for gram-negative bacillus Patient is on room air oxygen No signs of encephalopathy Renal function and white cell count are both improved Pepcid for GI prophylaxis We will continue to follow the patient will be moved out of the intensive care unit.
--- NOTE | 2024-03-15 06:11 | P.PN ---
Subjective Progress Note Date: 03/14/24 This is a pleasant 69 years old maleWith no significant past medical history other than hypertension. Presents because of fever of 2 days duration associated with sweating. Feeling tired and low appetite Also patient was complaining from dysuria and passing blood in his urine Other than that he denies chest pain or dyspnea. No change in bowel habits. No headache dizziness weakness or numbness He denies smoking alcohol or illicit drugs On admission he has a fever 102, blood pressure dropped to 79/61 and placed on small dose of Levophed. He has leukocytosis 18.9 and creatinine went up 1.1 up to 1.5 Urinalysis suspicious for infection Patient was started on ceftriaxone and IV vancomycin and normal saline 130 mL/h after several boluses and also he required pressors with Levophed. 03/14/2024 Patient seen and evaluated in follow-up today currently being transferred out of ICU to [facility]. Patient is off pressor support and Tolerating well maintained on IV antibiotics. Patient is afebrile with no reports of chest pain or shortness of breath. Review of systems: Constitutional: No reports of fatigue, fever, or chills Cardiovascular: No reports of chest pain or palpitations Respiratory: No reports of shortness of breath or cough GI: No reports of nausea, vomiting, or diarrhea : No reports of dysuria or retention Neurovascular: reports of generalized weakness Physical exam: GENERAL: The patient is alert and oriented x3, not in any acute distress. Well d eveloped, well nourished. HEENT: Pupils are round and equally reacting to light. EOMI. No scleral icterus. No conjunctival pallor. Normocephalic, atraumatic. No pharyngeal erythema. No thyromegaly. CARDIOVASCULAR: S1 and S2 present. No murmurs, rubs, or gallops. PULMONARY: Chest is clear to auscultation, no wheezing , no crackles. ABDOMEN: Soft, nontender, nondistended, normoactive bowel sounds. No palpable organomegaly. MUSCULOSKELETAL: No joint swelling or deformity. EXTREMITIES: No cyanosis, clubbing, or pedal edema. NEUROLOGICAL: Gross neurological examination did not reveal any focal deficits. SKIN: No rashes. no petechiae. Assessment: Septic shock secondary to UTI Acute urinary tract infection, present on admission Acute kidney injury secondary to above, improving Hypertension, currently blood pressure on the low side requiring pressors, improved off pressor support GI prophylaxis DVT prophylaxis Full code Plan: Continue with antibiotic currently on ceftriaxone Follow-up urine culture, preliminary showing gram-negative bacilli and blood cul tures remain negative. Infectious disease following No longer requiring pressor support and patient is [facility] Will follow-up on repeat labs and continue to monitor closely Recommend PT/OT therapy evaluation The impression and plan of care has been dictated by Iveth Morgan, Nurse Practitioner as directed. Dr. Joe MD I have performed a history and examination and MDM of this patient, discussed the same with the dictator, and agree with the dictator's assessment and plan as written ,documented as a scribe. Based on total visit time, I have performed more than 50% of the visit. Objective - Vital Signs Vital signs: Vital Signs Temp 98.0 F 03/14/24 08:00 Pulse 85 03/14/24 08:00 Resp 16 03/14/24 08:00 BP 136/85 03/14/24 08:00 Pulse Ox 96 03/14/24 08:00 FiO2 Intake & Output 03/13/24 03/14/24 03/14/24 18:59 06:59 18:59 Intake Total 2470 2440 Output Total 420 1200 Balance 2050 1240 Weight 86.183 kg Intake: IV 1770 1900 Cefepime 2 gm In Sodium 100 100 Chloride 0.9% 100 ml @ 25 mls/hr IVPB Q8HR [facility] Rx# :[id number] Sodium Chloride 0.9% 1, 1170 1300 000 ml @ 130 mls/hr IV . Q7H42M [facility] Rx#:[id number] Vancomycin 1,500 mg In 500 500 Sodium Chloride 0.9% 500 ml 500 ml @ 167 mls/hr IVPB ONCE [facility] Rx#: [id number] Oral 700 540 Output: Urine 420 1200 Other: Voiding Method Urinal Toilet Toilet Urinal Urinal # Voids 1 - Labs CBC & Chem 7: 03/14/24 05:26 03/14/24 05:26 Labs: Abnormal Lab Results - Last 24 Hours (Table) 03/13/24 03/14/24 03/14/24 Range/Units 06:26 05:26 05:26 WBC 13.9 H (3.8-10.6) k/uL RBC 4.26 L (4.30-5.90) m/uL Hgb 12.9 L (13.0-17.5) gm/dL Plt Count 133 L (150-450) k/uL Neutrophils # 12.5 H (1.3-7.7) k/uL Neutrophils # (Manual) 16.50 H (1.3-7.7) k/uL Lymphocytes # 0.7 L (1.0-4.8) k/uL Lymphocytes # (Manual) 0.73 L (1.0-4.8) k/uL Metamyelocytes # (Man) 0.36 H (0) k/uL Sodium 134 L (137-145) mmol/L Carbon Dioxide 20 L (22-30) mmol/L Calcium 8.0 L (8.4-10.2) mg/dL
--- NOTE | 2024-03-15 08:15 | P.PN ---
Subjective Progress Note Date: 03/14/24 Principal diagnosis: Reason for follow-up visit urinary tract infection Patient is a 69-year-old male with a past medical history significant for hypertension, patient presenting to the ER for evaluation of dysuria hematuria urgency, patient has been diagnosed with sepsis secondary to urinary tract infection with initial admission to ICU subsequently has been transferred out. On today's evaluation that is 03/14/2024, patient has been afebrile, patient is breathing comfortably and is currently on room air, patient denies having any significant cough no chest pain shortness of breath, patient denies nausea vomiting or diarrhea and no abdominal pain. The patient white count is down to 13.9 creatinine 1.08 urine is growing gram- negative blood cultures are currently pending Objective - Vital Signs Vital signs: Vital Signs Temp 98.0 F 03/14/24 08:00 Pulse 85 03/14/24 08:00 Resp 16 03/14/24 08:00 BP 136/85 03/14/24 08:00 Pulse Ox 96 03/14/24 08:00 FiO2 Intake & Output 03/13/24 03/14/24 03/14/24 18:59 06:59 18:59 Intake Total 2470 2440 Output Total 420 1200 Balance 2050 1240 Weight 86.183 kg Intake: IV 1770 1900 Cefepime 2 gm In Sodium 100 100 Chloride 0.9% 100 ml @ 25 mls/hr IVPB Q8HR [facility] Rx# :[id number] Sodium Chloride 0.9% 1, 1170 1300 000 ml @ 130 mls/hr IV . Q7H42M [facility] Rx#:[id number] Vancomycin 1,500 mg In 500 500 Sodium Chloride 0.9% 500 ml 500 ml @ 167 mls/hr IVPB ONCE [facility] Rx#: [id number] Oral 700 540 Output: Urine 420 1200 Other: Voiding Method Urinal Toilet Toilet Urinal Urinal # Voids 1 - Exam GENERAL DESCRIPTION: An elderly male lying in bed in no distress RESPIRATORY SYSTEM: Unlabored breathing , decreased breath sounds at bases HEART: S1 S2 regular rate and rhythm , ABDOMEN: Soft , no tenderness EXTREMITIES: No edema feet - Labs CBC & Chem 7: 03/14/24 05:26 03/14/24 05:26 Labs: Abnormal Lab Results - Last 24 Hours (Table) 03/14/24 03/14/24 Range/Units 05:26 05:26 WBC 13.9 H (3.8-10.6) k/uL RBC 4.26 L (4.30-5.90) m/uL Hgb 12.9 L (13.0-17.5) gm/dL Plt Count 133 L (150-450) k/uL Neutrophils # 12.5 H (1.3-7.7) k/uL Lymphocytes # 0.7 L (1.0-4.8) k/uL Sodium 134 L (137-145) mmol/L Carbon Dioxide 20 L (22-30) mmol/L Calcium 8.0 L (8.4-10.2) mg/dL Microbiology - Last 24 Hours (Table) 03/12/24 21:02 Urine Culture - Preliminary Urine,Clean Catch Gram Neg Bacilli Assessment and Plan (1) Sepsis Current Visit: Yes Status: Acute Code(s): A41.9 - SEPSIS, UNSPECIFIED ORGANISM SNOMED Code(s): 10834197 (2) Complicated UTI (urinary tract infection) Current Visit: Yes Status: Acute Code(s): N39.0 - URINARY TRACT INFECTION, SITE NOT SPECIFIED SNOMED Code(s): 32361366 Plan: 1patient presented hospital with sepsis in this patient who did have a fever tachycardia hypotension requiring pressor support admitted to ICU with significant urine syndrome positive UA likely related to urinary tract infection likely from enteric gram-negative pathogen gram-positive such as Enterococcus not entirely excluded 2-patient did have mild insufficiency high risk for nephrotoxicity, patient did have improvement in the creatinine 3-patient urine is growing gram-negative blood culture so far negative we will continue cefepime discontinue vancomycin Dictation was produced using [employer] dictation software. please excuse any grammatical, word or spelling errors. Time with Patient: Less than 30
--- NOTE | 2024-03-15 13:04 | P.PN ---
Subjective patient is seen for follow-up for acute kidney injury. He has been transferred out of the ICU. Patient denies any significant complaints. Serum creatinine has improved to 1.0. Objective - Vital Signs Vital signs: Vital Signs Temp 98.2 F 03/15/24 12:32 Pulse 81 03/15/24 12:32 Resp 16 03/15/24 12:32 BP 149/91 03/15/24 12:32 Pulse Ox 96 03/15/24 12:32 FiO2 Intake & Output 03/14/24 03/15/24 03/15/24 18:59 06:59 18:59 Intake Total 100 590 Balance 100 590 Intake: Intake, IV Titration 100 Amount Cefepime 2 gm In Sodium 100 Chloride 0.9% 100 ml @ 25 mls/hr IVPB Q8HR [facility] Rx# :[id number] Oral 590 Other: Voiding Method Toilet Toilet Toilet Urinal Urinal Urinal # Voids 1 3 - Exam 1. Acute kidney injury, ATN secondary to hypotension and underlying infection. Nonoliguric. Maintained on IV fluids. 2. UTI, urine culture grew E. coli 3. Hypertension maintained on calcium channel blockers 4. Septic shock from urinary tract infection - Labs CBC & Chem 7: 03/14/24 05:26 03/14/24 05:26 Labs: Microbiology - Last 24 Hours (Table) 03/13/24 06:01 Blood Culture - Preliminary Blood 03/12/24 21:02 Urine Culture - Final Urine,Clean Catch Escherichia coli Assessment and Plan Assessment: 1. Acute kidney injury, ATN secondary to hypotension and underlying infection. Nonoliguric. Maintained on IV fluids. 2. UTI, urine culture grew E. coli 3. Hypertension entertained on calcium channel blockers 4. Septic shock from urinary tract infection Plan: stable for discharge from nephrology standpoint. Antibiotics as per ID
[2024-03-15 13:23] LABS: Basophils % (A) 0 %; Eosinophils % (A) 1 %; HCT 40.7 % (39.0-53.0); HGB 13.6 gm/dL (13.0-17.5); Lymphocytes # (A) 0.6 k/uL (1.0-4.8); Lymphocytes % (A) 8 %; MCH 30.9 pg (25.0-35.0); MCHC 33.5 g/dL (31.0-37.0); Mean Platelet Volume 7.3; Monocytes # (A) 0.3 k/uL (0-1.0); Monocytes % (A) 5 %; Neutrophils # (A) 5.7 k/uL (1.3-7.7); Neutrophils % (A) 84 %; Platelet Count 139 k/uL (150-450); RBC 4.42 m/uL (4.30-5.90); RDW 13.3 % (11.5-15.5); WBC 6.7 k/uL (3.8-10.6)
[2024-03-15 13:54] LABS: ALT 65 U/L (4-49); AST 109 U/L (17-59); African American GFR (CKD) >90 (>60 ml/min/1.73 sqM); Albumin 3.1 g/dL (3.5-5.0); Albumin/Globulin Ratio 1.1; Alkaline Phosphatase 142 U/L (38-126); Anion Gap 4 mmol/L; Blood Urea Nitrogen 15 mg/dL (9-20); Calcium 8.1 mg/dL (8.4-10.2); Carbon Dioxide 28 mmol/L (22-30); Chloride 99 mmol/L (98-107); Globulin 2.7 g/dL; Glucose 151 mg/dL (74-99); Magnesium 1.9 mg/dL (1.6-2.3); Non-African American GFR(CKD) 89 (>60 ml/min/1.73 sqM); Potassium 3.3 mmol/L (3.5-5.1); Sodium 131 mmol/L (137-145); Total Bilirubin 0.9 mg/dL (0.2-1.3); Total Protein 5.8 g/dL (6.3-8.2)
--- NOTE | 2024-03-15 15:47 | P.PN ---
Subjective Progress Note Date: 03/15/24 Principal diagnosis: Reason for follow-up visit urinary tract infection Patient is a 69-year-old male with a past medical history significant for hypertension, patient presenting to the ER for evaluation of dysuria hematuria urgency, patient has been diagnosed with sepsis secondary to urinary tract infection with initial admission to ICU subsequently has been transferred out. On today's evaluation that is 03/14/2024, patient has been afebrile, patient is breathing comfortably and is currently on room air, patient denies having any significant cough no chest pain shortness of breath, patient denies nausea vomiting or diarrhea and no abdominal pain, patient mention feeling better. Patient white count normalized to 6.7, creatinine 0.88 urine has been finalized with E. coli that is a sensitive pathogen Objective - Vital Signs Vital signs: Vital Signs Temp 98.5 F 03/15/24 07:01 Pulse 98 03/15/24 07:01 Resp 16 03/15/24 07:01 BP 149/82 03/15/24 07:01 Pulse Ox 97 03/15/24 08:59 FiO2 Intake & Output 03/14/24 03/15/24 03/15/24 18:59 06:59 18:59 Intake Total 100 590 Balance 100 590 Intake: Intake, IV Titration 100 Amount Cefepime 2 gm In Sodium 100 Chloride 0.9% 100 ml @ 25 mls/hr IVPB Q8HR [facility] Rx# :[id number] Oral 590 Other: Voiding Method Toilet Toilet Toilet Urinal Urinal Urinal # Voids 1 3 - Exam GENERAL DESCRIPTION: An elderly male lying in bed in no distress RESPIRATORY SYSTEM: Unlabored breathing , decreased breath sounds at bases HEART: S1 S2 regular rate and rhythm , ABDOMEN: Soft , no tenderness EXTREMITIES: No edema feet - Labs CBC & Chem 7: 03/15/24 13:07 03/15/24 13:07 Labs: Microbiology - Last 24 Hours (Table) 03/12/24 21:02 Urine Culture - Final Urine,Clean Catch Escherichia coli 03/13/24 06:01 Blood Culture - Preliminary Blood Assessment and Plan (1) Sepsis Current Visit: Yes Status: Acute Code(s): A41.9 - SEPSIS, UNSPECIFIED ORGANISM SNOMED Code(s): 60522796 (2) Complicated UTI (urinary tract infection) Current Visit: Yes Status: Acute Code(s): N39.0 - URINARY TRACT INFECTION, SITE NOT SPECIFIED SNOMED Code(s): 49277210 Plan: 1patient presented hospital with sepsis in this patient who did have a fever tachycardia hypotension requiring pressor support admitted to ICU with significant urine syndrome positive UA likely related to urinary tract infection likely from enteric gram-negative pathogen gram-positive such as Enterococcus not entirely excluded 2-patient urine has been finalized with E. coli that is a sensitive pathogen we will discontinue cefepime start the patient on Rocephin 2 g daily with a plan to finish therapy with oral Cipro discussed in detail with the ROASTER SUPERVISOR for admitting team as well as the family the bedside Dictation was produced using [employer] dictation software. please excuse any grammatical, word or spelling errors. Time with Patient: Less than 30
--- NOTE | 2024-03-15 17:23 | P.PN ---
Subjective Progress Note Date: 03/15/24 Patient is a 69-year-old white male with past medical history significant for hypertension. Patient is from [place] on holiday, recently traveled here by plane last week. Comes to the emergency department late last night with uncontrollable fever. Tmax 102.5 F. Patient is endorsing urinary symptoms including burning with urination, 1 episode of gross hematuria, and urinary frequency. states patient was confused last night when spiking fever. Denies CVA tenderness or flank pain. Admits nausea without vomiting. Denies history of kidney stones. Denies previous urinary tract infection. Denies previous BPH or cancer. Urinalysis taken on arrival suspicious for urinary tract infection with large leukocyte Estrace and bacteruria. As well as microscopic hematuria. Urine and blood culture is pending. Patient is covered on broad- spectrum antibiotics in the form of vancomycin and cefepime. Of note, patient also reporting some vague URI like symptoms including nasal congestion/postnasal drip and sore throat with chest congestion. Denies SOB. No significant coughing or sputum production. No chest pain. No hemoptysis. Denies unilateral lower extremity swelling or calf pain. CBC: WBC count 18.9, hemoglobin 15.1, hematocrit 44.6, platelets 161. BMP: Sodium 133, potassium 4.1, chloride 99, serum bicarb 20, BUN 19, creatinine 1.14, glucose 121. Lactic 1.6. LFTs unremarkable. While being evaluated in the emergency department, patient was noted to be hypotensive. Has been adequately fluid resuscitated with a total of 3 L normal saline bolus. Also, receiving normal saline at 130 mL/h. Despite this remains hypotensive, now requiring vasopressor support in the form of norepinephrine, which is currently infusing at 0.03 mcg/kg/min and actively being titrated. Patient is currently resting comfortably in trauma bay 1. He is alert and oriented x 3. His is at bedside. He is on room air. SpO2 99%. Heart rate 92 bpm. Most recent blood pressure 79/61 mmHg. Patient is being admitted to the intensive care unit. On 03/14/2024, the patient is being seen for a follow-up in the intensive care unit. The patient was septic related to urine tract infection and the urine culture is positive for gram-negative bacillus in the blood culture is showing no growth. Patient is doing much better. White cell count is down to 13.9 and the patient is currently on no pressors. The patient also showing improvement acute kidney injury the creatinine is down to 1.08 and his sodium is at 134. No altered mentation. No flank pain. No dysuria frequency urgency. The patient remains on IV cefepime. Awaiting final cultures and sensitivities. IV fluids a re currently at KVO and the patient is tolerating diet. No nausea or emesis or chest pain. 03/15/2024, patient has no new complaints. Patient is on IV Rocephin. Urine culture was positive for E. coli. The white cell count is currently down to 6.7. Hemoglobin is 13.6. BUN is 15 with a creatinine of 0.88 and the patient is completely, recovered from acute kidney injury. Potassium levels at 3.8 needs to be replaced. Patient is currently on room air oxygen. Hemodynamically stable. LFTs today shows some abnormalities with an AST of 109, ALT of 65 and a lot of phosphatase of 142. Note that his baseline LFTs were essentially within normal limits. Objective - Vital Signs Vital signs: Vital Signs Temp 98.2 F 03/15/24 12:32 Pulse 81 03/15/24 12:32 Resp 16 03/15/24 12:32 BP 149/91 03/15/24 12:32 Pulse Ox 96 03/15/24 12:32 FiO2 Intake & Output 03/14/24 03/15/24 03/15/24 18:59 06:59 18:59 Intake Total 100 590 240 Balance 100 590 240 Intake: Intake, IV Titration 100 Amount Cefepime 2 gm In Sodium 100 Chloride 0.9% 100 ml @ 25 mls/hr IVPB Q8HR [facility] Rx# :[id number] Oral 590 240 Other: Voiding Method Toilet Toilet Toilet Urinal Urinal Urinal # Voids 1 3 - Exam GENERAL EXAM: Alert, 69-year-old male appearing stated age, comfortable in no apparent distress. HEAD: Normocephalic and atraumatic EYES: Normal reaction of pupils, equal size. NOSE: Clear with pink turbinates. THROAT: No erythema or exudates. NECK: No masses, no JVD. CHEST: No chest wall deformity. LUNGS: Equal air entry with no crackles, wheeze, rhonchi or dullness. On room air. No conversational dyspnea or accessory muscle use.. CVS: S1 and S2 normal with no audible murmur, regular rhythm. No extra heart sounds ABDOMEN: No hepatosplenomegaly, active bowel sounds, no guarding or rigidity. No suprapubic tenderness. SPINE: No scoliosis or deformity. No CVA tenderness. SKIN: No rashes CENTRAL NERVOUS SYSTEM: No focal deficits, tone is normal in all 4 extremities. EXTREMITIES: There is no peripheral edema, clubbing, or cyanosis. Peripheral pulses are intact. - Labs CBC & Chem 7: 03/15/24 13:07 03/15/24 13:07 Labs: Abnormal Lab Results - Last 24 Hours (Table) 03/15/24 03/15/24 Range/Units 13:07 13:07 Plt Count 139 L (150-450) k/uL Lymphocytes # 0.6 L (1.0-4.8) k/uL Sodium 131 L (137-145) mmol/L Potassium 3.3 L (3.5-5.1) mmol/L Glucose 151 H (74-99) mg/dL Calcium 8.1 L (8.4-10.2) mg/dL AST 109 H (17-59) U/L ALT 65 H (4-49) U/L Alkaline Phosphatase 142 H (38-126) U/L Total Protein 5.8 L (6.3-8.2) g/dL Albumin 3.1 L (3.5-5.0) g/dL Microbiology - Last 24 Hours (Table) 03/13/24 06:01 Blood Culture - Preliminary Blood 03/12/24 21:02 Urine Culture - Final Urine,Clean Catch Escherichia coli Assessment and Plan Assessment: UTI and secondary sepsis and urine cultures showing E. coli . Blood cultures negative thus far. Patient is currently on IV Rocephin Hypotension, refractory to fluid resuscitation, requiring vasopressor support in the form of norepinephrine, recovered and the patient is currently off pressors Sepsis/septic shock, improved Acute leukocytosis, improving Acute kidney injury, improving Mild transaminitis, nonspecific URI like symptoms History of hypertension Plan: Change IV fluids to KVO Currently off pressors Continue IV Rocephin and transition this patient to oral antibiotics by tomorrow Blood culture is negative Urine cultures positive for E. coli, Patient is on room air oxygen No signs of encephalopathy Renal function and white cell count are both improved Pepcid for GI prophylaxis Monitor LFTs .
[2024-03-15] MEDS: FUROSEMIDE 10 MG/ML 4 ML VIAL IV STA (18:47)
[2024-03-15] MEDS ORDERED: VANCOMYCIN TROUGH DUE 1 EACH MISC MISCELLANE ONE (21:00)
[2024-03-16] MEDS ORDERED: guaiFENesin 600 MG TABLET.ER PO PRN (00:53)
--- NOTE | 2024-03-16 05:17 | P.PN ---
Subjective Progress Note Date: 03/15/24 This is a pleasant 69 years old maleWith no significant past medical history other than hypertension. Presents because of fever of 2 days duration associated with sweating. Feeling tired and low appetite Also patient was complaining from dysuria and passing blood in his urine Other than that he denies chest pain or dyspnea. No change in bowel habits. No headache dizziness weakness or numbness He denies smoking alcohol or illicit drugs On admission he has a fever 102, blood pressure dropped to 79/61 and placed on small dose of Levophed. He has leukocytosis 18.9 and creatinine went up 1.1 up to 1.5 Urinalysis suspicious for infection Patient was started on ceftriaxone and IV vancomycin and normal saline 130 mL/h after several boluses and also he required pressors with Levophed. 03/14/2024 Patient seen and evaluated in follow-up today currently being transferred out of ICU to [facility]. Patient is off pressor support and Tolerating well maintained on IV antibiotics. Patient is afebrile with no reports of chest pain or shortness of breath. 03/15/2024 Patient seen and evaluated in follow-up this morning with family at the bedside reporting to feeling improved. Patient did have 1 low-grade temp of 99 overnight and urine culture has been finalized with E. coli with sensitivities. Patient was maintained on cefepime and is transitioning over to ceftriaxone per ID recommendations and patient will continue on oral Cipro on discharge. Patient is currently afebrile with no reports of chest pain or shortness of breath. Patient does have some mild congestion with an occasional cough. Patient noted to have some volume overload of the lower extremities and will obtain repeat labs to monitor kidney functions and give a dose of Lasix. Encouraged to increase activity as tolerated and encouraged oral intake. Possible discharge planning in the next 24 hours. Review of systems: Constitutional: No reports of fatigue, reports 1 low-grade fever, or chills Cardiovascular: No reports of chest pain or palpitations Respiratory: No reports of shortness of breath or cough GI: No reports of nausea, vomiting, or diarrhea : No reports of dysuria or retention Neurovascular: reports of generalized weakness and some lower extremity swelling Physical exam: GENERAL: The patient is alert and oriented x3, not in any acute distress. Well developed, well nourished. Elderly appearing HEENT: Pupils are round and equally reacting to light. EOMI. No scleral icterus. No conjunctival pallor. Normocephalic, atraumatic. No pharyngeal erythema. No thyromegaly. CARDIOVASCULAR: S1 and S2 present. No murmurs, rubs, or gallops. PULMONARY: Chest is clear to auscultation, no wheezing , no crackles. ABDOMEN: Soft, nontender, nondistended, normoactive bowel sounds. No palpable organomegaly. MUSCULOSKELETAL: No joint swelling or deformity. EXTREMITIES: No cyanosis, clubbing, or pedal edema. Bilateral lower extremity edema. Mild 1+ pitting noted NEUROLOGICAL: Gross neurological examination did not reveal any focal deficits. SKIN: No rashes. no petechiae. Assessment: Septic shock secondary to UTI, urinary culture finalized with E. coli with sensitivities Acute urinary tract infection, present on admission Acute kidney injury secondary to above, resolved Hypertension, currently blood pressure on the low side requiring pressors, improved off pressor support GI prophylaxis DVT prophylaxis Full code Plan: Continue with antibiotic currently on ceftriaxone per ID recommendations. Urine culture showed E. coli sensitivities Blood cultures remain negative and patient did have 1 low-grade temp of 99. Patient will continue on oral Cipro on discharge Patient with some mild lower extremity swelling likely secondary to volume ove rload will monitor kidney functions and give a dose of Lasix. KVO IV fluids No longer requiring pressor support and currently normotensive Will follow-up on repeat labs and continue to monitor closely, LFTs mildly elevated Possible discharge planning in next 24 hours The impression and plan of care has been dictated by Iveth Morgan, Nurse Practitioner as directed. Dr. Joe MD I have performed a history and examination and MDM of this patient, discussed the same with the dictator, and agree with the dictator's assessment and plan as written ,documented as a scribe. Based on total visit time, I have performed more than 50% of the visit. Objective - Vital Signs Vital signs: Vital Signs Temp 98.5 F 03/15/24 07:01 Pulse 98 03/15/24 07:01 Resp 16 03/15/24 07:01 BP 149/82 03/15/24 07:01 Pulse Ox 97 03/15/24 08:59 FiO2 Intake & Output 03/14/24 03/15/24 03/15/24 18:59 06:59 18:59 Intake Total 100 590 Balance 100 590 Intake: Intake, IV Titration 100 Amount Cefepime 2 gm In Sodium 100 Chloride 0.9% 100 ml @ 25 mls/hr IVPB Q8HR [facility] Rx# :[id number] Oral 590 Other: Voiding Method Toilet Toilet Toilet Urinal Urinal Urinal # Voids 1 3 - Labs CBC & Chem 7: 03/15/24 13:07 03/15/24 13:07 Labs: Microbiology - Last 24 Hours (Table) 03/13/24 06:01 Blood Culture - Preliminary Blood 03/12/24 21:02 Urine Culture - Preliminary Urine,Clean Catch Gram Neg Bacilli
[2024-03-16 09:35] LABS: ALT 80 U/L (10-49); AST 103 U/L (14-35); Albumin 3.5 g/dL (3.8-4.9); Albumin/Globulin Ratio 1.52 Ratio (1.60-3.17); Alkaline Phosphatase 150 U/L (41-126); Blood Urea Nitrogen 15.4 mg/dL (9.0-27.0); Chloride 96 mmol/L (96-109); Globulin 2.3 g/dL (1.6-3.3); Glucose 116 mg/dL (70-110); Potassium 3.3 mmol/L (3.5-5.5); Sodium 133 mmol/L (135-145); Total Bilirubin 0.5 mg/dL (0.3-1.2); Total Protein 5.8 g/dL (6.2-8.2)
[2024-03-16] MEDS ORDERED: Potassium Replacement Protocol 1 EACH MISC MISCELLANE PRN (10:10)
[2024-03-16] MEDS: POTASSIUM CHLORIDE ER 20 MEQ TAB.ER PO SCH ×2 (12:02→21:00)
--- NOTE | 2024-03-16 13:00 | XR ---
EXAMINATION TYPE: XR chest 1V portable DATE OF EXAM: 03/16/2024 12:54 PM CLINICAL INDICATION: Male, 69 years old with history of shortness of breath; PH[facility] COMPARISON: None TECHNIQUE: XR chest 1V portable Frontal view of the chest. FINDINGS: Lungs/Pleura: There is no evidence of pleural effusion, focal consolidation, or pneumothorax. Pulmonary vascularity: Unremarkable. Heart/mediastinum: Cardiomediastinal silhouette is unremarkable. Musculoskeletal: No acute osseous pathology. IMPRESSION: No acute cardiopulmonary disease/process.
--- NOTE | 2024-03-16 14:40 | US ---
EXAMINATION TYPE: US liver DATE OF EXAM: 03/16/2024 COMPARISON: NONE CLINICAL INDICATION: Male, 69 years old with history of elevated LFT's; TECHNIQUE: Multiple sonographic images of the right upper quadrant are obtained. FINDINGS: EXAM MEASUREMENTS: Liver Length: 17.4 cm Gallbladder Wall: 0.2 cm CBD: 0.4 cm Right Kidney: 11.7 x 4.9 x 5.2 cm Pancreas: wnl Liver: Slightly heterogenous likely technical. No focal lesion. Gallbladder: A couple tiny 3 mm mural based nodules, largest measuring 4 mm along both anterior and posterior gallbladder lim. No abnormal gallbladder distention, wall thickening, pericholecystic flu id, or shadowing calculi. Evidence for sonographic Edmondson's sign: neg CBD: wnl Right Kidney: No hydronephrosis or masses seen IMPRESSION: 1. Borderline hepatomegaly at 17.4 cm. No significant fatty infiltration detected by ultrasound. 2. Suspect a few gallbladder wall polyps measuring up to 4 mm. Six-month follow-up gallbladder ultras ound recommended to reassess. 3. No gallstones or biliary ductal dilatation.
--- NOTE | 2024-03-16 14:48 | P.PN ---
Subjective Progress Note Date: 03/16/24 Principal diagnosis: Reason for follow-up visit urinary tract infection Patient is a 69-year-old male with a past medical history significant for hypertension, patient presenting to the ER for evaluation of dysuria hematuria urgency, patient has been diagnosed with sepsis secondary to urinary tract infection with initial admission to ICU subsequently has been transferred out. On today's evaluation that is 03/16/2024,the patient denies any fever or any chills, patient is breathing comfortably on room air, the patient denies chest pain shortness of breath and did have occasional cough, patient denies abdominal pain, no nausea vomiting or diarrhea. Patient mention overall feeling better. Patient did have a creatinine of 1.1 liver isms mildly elevated blood culture negative liver ultrasound no gallstones chest x-ray no acute cardiopulmonary disease process Objective - Vital Signs Vital signs: Vital Signs Temp 98.1 F 03/16/24 07:52 Pulse 76 03/16/24 07:52 Resp 14 03/16/24 07:52 BP 135/83 03/16/24 07:52 Pulse Ox 92 L 03/16/24 07:52 FiO2 Intake & Output 03/15/24 03/16/24 03/16/24 18:59 06:59 18:59 Intake Total 1979 590 Balance 1979 Intake: Oral 1979 Other: Voiding Method Toilet Toilet Urinal Urinal # Voids 8 3 # Bowel Movements 2 - Exam GENERAL DESCRIPTION: An elderly male lying in bed in no distress RESPIRATORY SYSTEM: Unlabored breathing , decreased breath sounds at bases HEART: S1 S2 regular rate and rhythm , ABDOMEN: Soft , no tenderness EXTREMITIES: No edema feet - Labs CBC & Chem 7: 03/15/24 13:07 03/16/24 06:01 Labs: Abnormal Lab Results - Last 24 Hours (Table) 03/15/24 03/16/24 Range/Units 13:07 06:01 Sodium 131 L 133 L (137-145) mmol/L Potassium 3.3 L 3.3 L (3.5-5.1) mmol/L Glucose 151 H 116 H (74-99) mg/dL Calcium 8.1 L 8.0 L (8.4-10.2) mg/dL AST 109 H 103 H (17-59) U/L ALT 65 H 80 H (4-49) U/L Alkaline Phosphatase 142 H 150 H (38-126) U/L Total Protein 5.8 L 5.8 L (6.3-8.2) g/dL Albumin 3.1 L 3.5 L (3.5-5.0) g/dL Albumin/Globulin Ratio 1.52 L (1.60-3.17) Ratio Microbiology - Last 24 Hours (Table) 03/13/24 06:01 Blood Culture - Preliminary Blood 03/12/24 21:02 Urine Culture - Final Urine,Clean Catch Escherichia coli Assessment and Plan (1) Sepsis Current Visit: Yes Status: Acute Code(s): A41.9 - SEPSIS, UNSPECIFIED ORGANISM SNOMED Code(s): 70806419 (2) Complicated UTI (urinary tract infection) Current Visit: Yes Status: Acute Code(s): N39.0 - URINARY TRACT INFECTION, SITE NOT SPECIFIED SNOMED Code(s): 57948459 Plan: 1patient presented hospital with sepsis in this patient who did have a fever tachycardia hypotension requiring pressor support admitted to ICU with significant urine syndrome positive UA likely related to urinary tract infection likely from enteric gram-negative pathogen gram-positive such as Enterococcus not entirely excluded 2-patient urine has been finalized with E. coli that is a sensitive pathogen patient is currently on Rocephin 2 g daily however will be able n to finish therapy with oral Cipro x 10 days on discharge Dictation was produced using [employer] dictation software. please excuse any grammatical, word or spelling errors. Time with Patient: Less than 30
[2024-03-16] MEDS: FUROSEMIDE 10 MG/ML 2 ML VIAL IV ONE (15:50)
--- NOTE | 2024-03-17 07:45 | P.PN ---
Subjective Progress Note Date: 03/16/24 This is a pleasant 69 years old maleWith no significant past medical history other than hypertension. Presents because of fever of 2 days duration associated with sweating. Feeling tired and low appetite Also patient was complaining from dysuria and passing blood in his urine Other than that he denies chest pain or dyspnea. No change in bowel habits. No headache dizziness weakness or numbness He denies smoking alcohol or illicit drugs On admission he has a fever 102, blood pressure dropped to 79/61 and placed on small dose of Levophed. He has leukocytosis 18.9 and creatinine went up 1.1 up to 1.5 Urinalysis suspicious for infection Patient was started on ceftriaxone and IV vancomycin and normal saline 130 mL/h after several boluses and also he required pressors with Levophed. 03/14/2024 Patient seen and evaluated in follow-up today currently being transferred out of ICU to [facility]. Patient is off pressor support and Tolerating well maintained on IV antibiotics. Patient is afebrile with no reports of chest pain or shortness of breath. 03/15/2024 Patient seen and evaluated in follow-up this morning with family at the bedside reporting to feeling improved. Patient did have 1 low-grade temp of 99 overnight and urine culture has been finalized with E. coli with sensitivities. Patient was maintained on cefepime and is transitioning over to ceftriaxone per ID recommendations and patient will continue on oral Cipro on discharge. Patient is currently afebrile with no reports of chest pain or shortness of breath. Patient does have some mild congestion with an occasional cough. Patient noted to have some volume overload of the lower extremities and will obtain repeat labs to monitor kidney functions and give a dose of Lasix. Encouraged to increase activity as tolerated and encouraged oral intake. Possible discharge planning in the next 24 hours. 03/16/2024 Patient is seen in follow-up today reports to feeling improved was given a dose of Lasix yesterday showing some improvement in swelling and reports has urinated frequently. Patient denies any pain, burning, urgency in the urination. Patient is continued on IV ceftriaxone with infectious disease following and will transition to Cipro on discharge. Patient is afebrile and will monitor for 24 hours and also repeat LFTs as they are mildly elevated. Liver ultrasound and gallbladder ultrasound showing no acute findings and will monitor LFTs 1 more day. Patient is from [place] and visiting here and is concerned for requiring rehospitalization. Continue IV antibiotics 1 more day with probable discharge in 24 hours Review of systems: Constitutional: No reports of fatigue, reports no further fever, or chills Cardiovascular: No reports of chest pain or palpitations Respiratory: No reports of shortness of breath or cough GI: No reports of nausea, vomiting, or diarrhea, reports not much of an appetite : No reports of dysuria or retention Neurovascular: reports of generalized weakness and some lower extremity swelling although improving Physical exam: GENERAL: The patient is alert and oriented x3, not in any acute distress. Well developed, well nourished. Elderly appearing HEENT: Pupils are round and equally reacting to light. EOMI. No scleral icterus. No conjunctival pallor. Normocephalic, atraumatic. No pharyngeal erythema. No thyromegaly. CARDIOVASCULAR: S1 and S2 present. No murmurs, rubs, or gallops. PULMONARY: Chest is clear to auscultation, no wheezing , no crackles. ABDOMEN: Soft, nontender, nondistended, normoactive bowel sounds. No palpable organomegaly. MUSCULOSKELETAL: No joint swelling or deformity. EXTREMITIES: No cyanosis, clubbing, or pedal edema. Bilateral lower extremity edema. Improvements in lower extremity swelling noted, compression stockings noted NEUROLOGICAL: Gross neurological examination did not reveal any focal deficits. SKIN: No rashes. no petechiae. Assessment: Septic shock secondary to UTI, urinary culture finalized with E. coli with sensitivities Acute urinary tract infection, present on admission Acute kidney injury secondary to above, resolved Hypertension, currently blood pressure on the low side requiring pressors, improved off pressor support Mild transaminitis possibly secondary to mild hepatic congestion, trending down GI prophylaxis DVT prophylaxis Full code Plan: Continue with antibiotic currently on ceftriaxone per ID recommendations. Urine culture showed E. coli sensitivities Blood cultures remain negative and patient did have 1 low-grade temp of 99. Patient will continue on oral Cipro on discharge Patient with some mild lower extremity swelling likely secondary to volume overload will monitor kidney functions and give a dose of Lasix. Discontinue IV fluids No longer requiring pressor support and currently normotensive. Patient okay to resume blood pressure medication on discharge Will follow-up on repeat labs and continue to monitor closely, LFTs mildly elevated. Liver ultrasound was done as well as gallbladder showing borderline hepatomegaly at 17.4 cm no significant fatty infiltration detected, a few gallbladder wall polyps measuring up to 4 mm recommending 6-month follow-up of the gallbladder with no gallstones or biliary ductal dilatation noted. Will continue IV antibiotics 1 more day and follow-up with repeat labs and patient will be discharged in the next 24 hours The impression and plan of care has been dictated by Iveth Morgan, Nurse Practitioner as directed. Dr. Joe MD I have performed a history and examination and MDM of this patient, discussed the same with the dictator, and agree with the dictator's assessment and plan as written ,documented as a scribe. Based on total visit time, I have performed more than 50% of the visit. Objective - Vital Signs Vital signs: Vital Signs Temp 98.1 F 03/16/24 07:52 Pulse 76 03/16/24 07:52 Resp 14 03/16/24 07:52 BP 135/83 03/16/24 07:52 Pulse Ox 92 L 03/16/24 07:52 FiO2 Intake & Output 03/15/24 03/16/24 03/16/24 18:59 06:59 18:59 Intake Total 1980 590 Balance 1979 590 Intake: Oral 1979 590 Other: Voiding Method Toilet Toilet Urinal Urinal # Voids 8 3 # Bowel Movements 2 - Labs CBC & Chem 7: 03/15/24 13:07 03/16/24 18:15 Labs: Abnormal Lab Results - Last 24 Hours (Table) 03/15/24 03/15/24 03/16/24 Range/Units 13:07 13:07 06:01 Plt Count 139 L (150-450) k/uL Lymphocytes # 0.6 L (1.0-4.8) k/uL Sodium 131 L 133 L (137-145) mmol/L Potassium 3.3 L 3.3 L (3.5-5.1) mmol/L Glucose 151 H 116 H (74-99) mg/dL Calcium 8.1 L 8.0 L (8.4-10.2) mg/dL AST 109 H 103 H (17-59) U/L ALT 65 H 80 H (4-49) U/L Alkaline Phosphatase 142 H 150 H (38-126) U/L Total Protein 5.8 L 5.8 L (6.3-8.2) g/dL Albumin 3.1 L 3.5 L (3.5-5.0) g/dL Albumin/Globulin Ratio 1.52 L (1.60-3.17) Ratio Microbiology - Last 24 Hours (Table) 03/13/24 06:01 Blood Culture - Preliminary Blood 03/12/24 21:02 Urine Culture - Final Urine,Clean Catch Escherichia coli
[2024-03-17 10:07] LABS: ALT 69 U/L (10-49); AST 69 U/L (14-35); Albumin 3.4 g/dL (3.8-4.9); Albumin/Globulin Ratio 1.48 Ratio (1.60-3.17); Alkaline Phosphatase 130 U/L (41-126); BUN/Creat Ratio 18.56 Ratio (12.00-20.00); Blood Urea Nitrogen 16.7 mg/dL (9.0-27.0); Calcium 8.4 mg/dL (8.7-10.3); Carbon Dioxide 28.4 mmol/L (21.6-31.8); Chloride 98 mmol/L (96-109); Globulin 2.3 g/dL (1.6-3.3); Glucose 104 mg/dL (70-110); Potassium 3.4 mmol/L (3.5-5.5); Sodium 136 mmol/L (135-145); Total Bilirubin 0.5 mg/dL (0.3-1.2); Total Protein 5.7 g/dL (6.2-8.2)
[2024-03-17 13:42] VITALS: BP 144/85; PULSE 71; RESP 20; TEMP 98
--- NOTE | 2024-03-17 13:46 | P.DS ---
Providers Date of admission: 03/13/24 05:10 Expected date of discharge: 03/17/24 Attending physician: Carleen Culver Consults: 03/13/24 05:29 Consult Physician Stat Consulting Provider: Keo Zhao Consult Reason/Comments: septic shock. spoke with Roland Do you want consulting provider notified?: Yes 03/13/24 08:02 Consult Physician Routine Consulting Provider: Jonathan Santillan Consult Reason/Comments: lauryn, uti Do you want consulting provider notified?: Yes 03/13/24 08:03 Consult Physician Routine Consulting Provider: Marcia Portillo Consult Reason/Comments: uti Do you want consulting provider notified?: Yes Primary care physician: Physician Nonstaff Hospital Course: Discharge diagnoses; Septic shock secondary to UTI, urinary culture finalized with E. coli with s ensitivities Acute urinary tract infection, present on admission Acute kidney injury secondary to above, resolved Hypertension, currently blood pressure on the low side requiring pressors, improved off pressor support Mild transaminitis possibly secondary to mild hepatic congestion, trending down Hospital course; This is a pleasant 69 years old maleWith no significant past medical history other than hypertension. Presents because of fever of 2 days duration associated with sweating. Feeling tired and low appetite Also patient was complaining from dysuria and passing blood in his urine Other than that he denies chest pain or dyspnea. No change in bowel habits. No headache dizziness weakness or numbness He denies smoking alcohol or illicit drugs On admission he has a fever 102, blood pressure dropped to 79/61 and placed on small dose of Levophed. He has leukocytosis 18.9 and creatinine went up 1.1 up to 1.5 Urinalysis suspicious for infection Patient was started on ceftriaxone and IV vancomycin and normal saline 130 mL/h after several boluses and also he required pressors with Levophed. 03/14/2024 Patient seen and evaluated in follow-up today currently being transferred out of ICU to [facility]. Patient is off pressor support and Tolerating well maintained on IV antibiotics. Patient is afebrile with no reports of chest pain or shortness of breath. 03/15/2024 Patient seen and evaluated in follow-up this morning with family at the bedside reporting to feeling improved. Patient did have 1 low-grade temp of 99 overnight and urine culture has been finalized with E. coli with sensitivities. Patient was maintained on cefepime and is transitioning over to ceftriaxone per ID recommendations and patient will continue on oral Cipro on discharge. Patie nt is currently afebrile with no reports of chest pain or shortness of breath. Patient does have some mild congestion with an occasional cough. Patient noted to have some volume overload of the lower extremities and will obtain repeat labs to monitor kidney functions and give a dose of Lasix. Encouraged to increase activity as tolerated and encouraged oral intake. Possible discharge planning in the next 24 hours. 03/16/2024 Patient is seen in follow-up today reports to feeling improved was given a dose of Lasix yesterday showing some improvement in swelling and reports has urinated frequently. Patient denies any pain, burning, urgency in the urination. Patient is continued on IV ceftriaxone with infectious disease following and will transition to Cipro on discharge. Patient is afebrile and will monitor for 24 hours and also repeat LFTs as they are mildly elevated. Liver ultrasound and gallbladder ultrasound showing no acute findings and will monitor LFTs 1 more day. Patient is from [place] and visiting here and is concerned for requiring rehospitalization. Continue IV antibiotics 1 more day with probable discharge in 24 hours 03/17. Patient seen and examined. Being discharged on oral Cipro in stable condition. PHYSICAL EXAMINATION: GENERAL: The patient is alert and oriented x3, not in any acute distress. Well developed, well nourished. HEENT: Pupils are round and equally reacting to light. EOMI. No scleral icterus. No conjunctival pallor. Normocephalic, atraumatic. No pharyngeal erythema. No thyromegaly. CARDIOVASCULAR: S1 and S2 present. No murmurs, rubs, or gallops. PULMONARY: Chest is clear to auscultation, no wheezing or crackles. ABDOMEN: Soft, nontender, nondistended, normoactive bowel sounds. No palpable organomegaly. MUSCULOSKELETAL: No joint swelling or deformity. EXTREMITIES: No cyanosis, clubbing, or pedal edema. NEUROLOGICAL: Gross neurological examination did not reveal any focal deficits. SKIN: No rashes. Dictation was produced using [employer] dictation software. please excuse any grammatical, word or spelling errors. Patient Condition at Discharge: Good Plan - Discharge Summary Discharge Rx Participant: No New Discharge Prescriptions: New Ciprofloxacin HCl [Cipro] 500 mg PO BID 14 Days #28 tab Continue Zanidip 20 mg PO DAILY Discharge Medication List Zanidip 20 mg PO DAILY 03/13/24 [History] Ciprofloxacin HCl [Cipro] 500 mg PO BID 14 Days #28 tab 03/16/24 [Rx] Follow up Appointment(s)/Referral(s): Nonstaff,Physician [Primary Care Provider] - 1-2 days Marcia Portillo MD [STAFF PHYSICIAN] - 1 Week Patient Instructions/Handouts: Urinary Tract Infection in Men (DC) Discharge Disposition: HOME SELF-CARE
[2024-03-17] MEDS: diphenhydrAMINE 25 MG CAP PO STA (14:08)
--- NOTE | 2024-03-17 14:18 | P.PN ---
Subjective Progress Note Date: 03/17/24 Principal diagnosis: Reason for follow-up visit urinary tract infection Patient is a 69-year-old male with a past medical history significant for hypertension, patient presenting to the ER for evaluation of dysuria hematuria urgency, patient has been diagnosed with sepsis secondary to urinary tract infection with initial admission to ICU subsequently has been transferred out. On today's evaluation that is 03/17/2024,the patient remains to be afebrile, patient is on room air not requiring supplemental oxygen and denies any shortness of breath no chest pain did have occasional cough which has decreased in intensity.Patient denies having any nausea or vomiting, no abdominal pain and no diarrhea, mention overall feeling better. Patient creatinine 0.9 blood culture has been negative Objective - Vital Signs Vital signs: Vital Signs Temp 98.1 F 03/17/24 07:16 Pulse 85 03/17/24 08:00 Resp 16 03/17/24 07:16 BP 129/56 03/17/24 07:16 Pulse Ox 95 03/17/24 07:16 FiO2 Intake & Output 03/16/24 03/17/24 03/17/24 18:59 06:59 18:59 Intake Total 1080 240 Balance 1080 240 Intake: Oral 1080 240 Other: Voiding Method Toilet Toilet Urinal Urinal # Voids 2 # Bowel Movements 0 - Exam GENERAL DESCRIPTION: An elderly male lying in bed in no distress RESPIRATORY SYSTEM: Unlabored breathing , decreased breath sounds at bases HEART: S1 S2 regular rate and rhythm , ABDOMEN: Soft , no tenderness EXTREMITIES: No edema feet - Labs CBC & Chem 7: 03/15/24 13:07 03/17/24 06:07 Labs: Abnormal Lab Results - Last 24 Hours (Table) 03/17/24 Range/Units 06:07 Potassium 3.4 L (3.5-5.5) mmol/L Calcium 8.4 L (8.7-10.3) mg/dL AST 69 H (14-35) U/L ALT 69 H (10-49) U/L Alkaline Phosphatase 130 H (41-126) U/L Total Protein 5.7 L (6.2-8.2) g/dL Albumin 3.4 L (3.8-4.9) g/dL Albumin/Globulin Ratio 1.48 L (1.60-3.17) Ratio Microbiology - Last 24 Hours (Table) 03/13/24 06:01 Blood Culture - Preliminary Blood Assessment and Plan (1) Sepsis Current Visit: Yes Status: Acute Code(s): A41.9 - SEPSIS, UNSPECIFIED ORGANISM SNOMED Code(s): 17050852 (2) Complicated UTI (urinary tract infection) Current Visit: Yes Status: Acute Code(s): N39.0 - URINARY TRACT INFECTION, SITE NOT SPECIFIED SNOMED Code(s): 96901892 Plan: 1patient presented hospital with sepsis in this patient who did have a fever tachycardia hypotension requiring pressor support admitted to ICU with significant urine syndrome positive UA likely related to urinary tract infection likely from enteric gram-negative pathogen gram-positive such as Enterococcus not entirely excluded 2-patient urine has been finalized with E. coli that is a sensitive pathogen, blood culture has been negative patient will be able to finish therapy with oral Cipro x 10 days on discharge, family at the bedside multiple question concern answered Dictation was produced using [employer] dictation software. please excuse any grammatical, word or spelling errors. Time with Patient: Less than 30
== END 2024-03-17 14:25 | disposition home or self-care (01) | DRG 871 ==
LOC: EC 20:17 → 6NMEDSUR 23:14 → OBSVTOIN 03-13 05:10 → 2SICU 03-13 05:24 → 5NMEDONC 03-14 10:08
PROVIDERS: ADMIT Internal Medicine; ATTEND Internal Medicine
PROC: 3E033XZ Introduction of Vasopressor into Peripheral Vein, Percutaneous Approach (ICD-10-PCS; principal; 2024-03-13)
DX: A41.51 Sepsis due to Escherichia coli [E. coli] (principal); N17.0 Acute kidney failure with tubular necrosis; R65.21 Severe sepsis with septic shock; N39.0 Urinary tract infection, site not specified; I10 Essential (primary) hypertension; B96.20 Unspecified Escherichia coli [E. coli] as the cause of diseases classified elsewhere; R31.0 Gross hematuria; E87.70 Fluid overload, unspecified; R74.01 Elevation of levels of liver transaminase levels; Z96.60 Presence of unspecified orthopedic joint implant; R09.82 Postnasal drip; R09.81 Nasal congestion; Z11.52 Encounter for screening for COVID-19; Z79.899 Other long term (current) drug therapy
CPT/HCPCS: 36415; 71045; 76705; 76770; 80048; 80053; 80074; 81001; 83605; 83690; 83735; 84132; 85025; 87040; 87077; 87086; 87186; 87636; 94760; 96361; 96365; 96366; 96367; 96368; 96372; 96375; 99285